=== PATIENT | female | born 1950 | race Caucasian/White ===

== ENCOUNTER 2024-11-04 19:04 | Inpatient (IN) | payer MEDICARE, SELFPAY ==
--- NOTE | ~2024-11-04 | XR_ITS ---
CLINICAL HISTORY: sob 1 view chest x-ray Comparison: None Findings: No consolidation or effusion. Normal size heart. No acute fracture. IMPRESSION: 1. No acute findings. This document has been electronically signed by: Manish Younger MD on 11/04/2024 19:49:59
[2024-11-04 19:14] VITALS: BP 140/73; PULSE 82; O2SAT 99
[2024-11-04 19:23] VITALS: BP 133/61; PULSE 80; RESP 20; TEMP 36.9; O2SAT 96; BMI 38.6
--- NOTE | 2024-11-04 19:25 | ECG_ITS ---
Test Reason : SOB Blood Pressure : */* mmHG Vent. Rate : 78 BPM Atrial Rate : 78 BPM P-R Int : 174 ms QRS Dur : 66 ms QT Int : 384 ms P-R-T Axes : 76 31 53 degrees QTcB Int : 437 ms Normal sinus rhythm Normal ECG No previous ECGs available Referred By: Chely Álvarez Electronically Signed By: NATY DOS SANTOS
--- NOTE | 2024-11-04 19:33 | ED_ITS ---
HPI - SOB/Dyspnea General Chief Complaint: Dyspnea Stated Complaint: SOB x3 weeks, hx COPD, asthma 80% RA Time Seen by Provider: 11/04/24 19:13 Source: patient and EMS Mode of arrival: EMS Limitations: no limitations History of Present Illness ED Provider: Dr. Chely Álvarez HPI Narrative: Patient comes to the emergency room via ambulance complaining of wheezing, cough and shortness of breath. Patient states that last week she tested positive for influenza and since then she has had multiple exacerbations. Per EMS, patient received Solu-Medrol and a DuoNeb. Per EMS, the initial O2 saturation was 80%. However, on arrival patient's oxygen saturation was 95% on 2 L. patient is speaking in full sentences, states that she already feels much better. Related Data Allergies Allergy/AdvReac Type Severity Reaction Status Date / Time No Known Allergies Allergy Verified 11/04/24 19:29 Review of Systems 2 Review of Systems: Constitutional : No Weight loss, No Fever, No Chills, No Night Sweats, No Fatigue, No Malaise ENT/Mouth : No Hearing loss, No Ear Pain, No Nasal Congestion, No Sinus Pain, No Hoarseness, No sore throat, No Rhinorrhea, No Swallowing Difficulty Eyes: No Eye Pain, No Swelling, No Redness, No Foreign Body, No Discharge, No Vision Changes Cardiovascular : Complaining of chest tightness without Chest Pain, No SOB, No Dyspnea on Exertion, No Orthopnea, No Edema, No Palpitations Respiratory : Complaining of cough, wheezing, shortness of breath Gastrointestinal : No Nausea, No Vomiting, No Diarrhea, No Constipation, No abdominal Pain, No Hematochezia, No Melena Genitourinary : no irregular bleeding, No Dysuria, No Urinary Frequency, No Hematuria, No Urinary Incontinence, No Urgency, No Flank Pain, No Urinary Flow Changes, No Hesitancy Musculoskeletal : No joint pain, No Myalgias, No Joint Swelling Skin : No Skin Lesions, No rash Neuro : No Weakness, No Numbness, No Paresthesias, No Loss of Consciousness, No Dizziness, No Headache Psych : No Anxiety/Panic, No Depression, No SI/HI/AH/VH, No Social Issues, Heme/Lymph: No Bruising, No Bleeding,No Lymphadenopathy Endocrine : No Polyuria, No Polydipsia, No Temperature Intolerance PMFSH Social History Social History Smoked in Last 30 Days: No Use of substances other than those prescribed or required for medical reasons: No Advance Directives: Yes Advance Directives Information Provided: No Advance Directives on File: No Do you have a plan to hurt others: No Plan Physical Exam 2 Vital Signs: Vital Signs: Last Vital Signs Temp 98.4 F 11/04/24 22:07 Pulse 89 11/04/24 22:07 Resp 16 11/04/24 22:07 BP 156/73 H 11/04/24 22:07 Pulse Ox 93 11/04/24 22:07 O2 Del Method Nasal Cannula 11/04/24 22:07 O2 Flow Rate 2 11/04/24 22:07 Oxygen Flow Rate 2 11/04/24 19:23 BMI result Body Mass Index 38.6 Const: Other: Appearance: Alert. Oriented X3. No acute distress. Eyes: Pupils equal, round and reactive to light. ENT: Pharynx normal. Neck: Normal inspection. Neck supple. No lymph nodes noted. No crepitus CVS: Normal heart rate and rhythm. Pulses normal. Normal S1 and S2 Respiratory: No respiratory distress. Speaking full sentences, on room air, oxygen saturation 92%. Very mild bilateral wheezing, no rales or crackles Abdomen: Soft and nontender. No rigidity. No distention. Skin: Skin warm and dry. Normal skin color. Normal skin turgor. Extremities: No lower extremity edema. No Lacerations. No Rash Neuro: Oriented X 3. No motor deficit. No sensory deficit. Moving all extremities. No slurred speech. CN 2 through 12 grossly intact Psych: calm, cooperative, normal affect Course Course Course Narrative: Patient was put back on 1 L of O2 for comfort. Patient will receive more nebulization treatments, also receiving 1 dose of magnesium IV. All of patient's labs and imaging pending . Patient already received a dose of Solu-Medrol in the ambulance and a DuoNeb. Medications Administered Discontinued Medications Generic Name Dose Route Start Last Admin Trade Name Franklinq PRN Reason Stop Dose Admin Albuterol Sulfate 2.5 mg/ 0 mg 11/04/24 19:46 11/04/24 19:54 Albuterol/Ipratropium 3 ml INHALE 11/04/24 19:47 5 dose ONCE ONE Administration Albuterol Sulfate 2.5 mg/ 0 mg 11/04/24 22:05 11/04/24 22:09 Albuterol/Ipratropium 3 ml INHALE 11/04/24 22:06 5 dose ONCE ONE Administration Magnesium Sulfate 2 gm in 50 mls @ 25 mls/hr 11/04/24 19:26 11/04/24 20:12 Magnesium Sulfate/H2o IV 11/04/24 21:25 25 mls/hr ONCE ONE Administration Medical Decision Making Medical Decision Making [facility] Narrative: My interpretation of labs: Patient's white blood cell count 8.0. Patient's hemoglobin 9.5, low crit 30.3. No previous labs for comparison. Patient denies bloody stools or black stools. Patient's chemistry within normal limits, normal troponin normal BNP. Serology positive for COVID. Patient has had symptoms for approximately 3 weeks. Unclear when the syndrome actually started. X-ray does not show any acute abnormality. Patient received Solu-Medrol, nebulization treatments, magnesium. Initially, patient was doing well on room air, oxygen saturation 93%. We did not ambulation trial, patient's oxygen saturation dropped to the high 70s, patient became very short of breath with walking a very short distance. Patient was helped back into bed and was placed on 2 L of oxygen, O2 improve again to the low 90s. I discussed the patient with Dr. Herr, patient being admitted Differential Diagnosis Differential Diagnoses: The differential diagnosis associated with the presentation includes Admission/Observation Consideration of admission/observation: Escalation of care including admission/observation considered Consult Healthcare Provider Management of the patient was discussed with: Hospitalist Lab Data MDM Lab Attestation statement: I reviewed the patient's lab results. 11/04/24 19:51 11/04/24 19:51 Labs: Lab Results 11/04/24 11/04/24 Range/Units 19:51 19:55 WBC 8.0 (4.8-10.8) X10*3/uL RBC 3.70 L (4.20-5.50) X10*6/uL Hgb 9.5 L (12.0-16.0) g/dl Hct 30.3 L (37.0-47.0) % MCV 81.9 (80.0-98.0) fL MCH 25.7 L (27.0-33.0) pg MCHC 31.4 (31.0-35.0) g/dl RDW 14.3 (11.0-16.0) % Plt Count 300 (160-400) X10*3/uL MPV 8.7 L (9.4-12.3) fL Immature Gran % (Auto) 0.6 H (0.0-0.4) % Neut % (Auto) 78.0 H (45-73) % Lymph % (Auto) 13.7 L (20-40) % [place] % (Auto) 4.6 (2-11) % Eos % (Auto) 2.8 (0-4) % Baso % (Auto) 0.3 (0-2) % Lymph # (Auto) 1.1 L (1.2-4.9) X10*3/uL [place] # (Auto) 0.4 (0.1-1.2) X10*3/uL Eos # (Auto) 0.2 (0.0-0.4) X10*3/uL Baso # (Auto) 0.0 (0.0-0.2) X10*3/uL Abs Immat Gran (auto) 0.05 H (0.00-0.03) X10*3/uL Absolute Neuts (auto) 6.2 (2.0-8.3) x10*3/uL Absolute Nucleated RBC 0.000 (0.0-0.012) X10*3/uL Nucleated RBC % (auto) 0.0 (0.0-0.2) /100WBC VBG pH 7.41 (7.32-7.43) VBG pCO2 52 mmHg VBG pO2 30 mmHg VBG HCO3 33 H (22-26) mmol/L VBG O2 Saturation 41.0 % VBG Base Excess 7.9 mmol/L Sodium 137 (135-145) mmol/L Potassium 4.5 (3.3-5.1) mmol/L Chloride 100 (96-108) mmol/L Carbon Dioxide 29 (22-29) mmol/L Anion Gap 13 (12-20) BUN 21 H (9-16) mg/dL Creatinine 0.91 (0.5-1.4) mg/dL Estim Creat Clear Calc 62.1 Estimated GFR > 60 Random Glucose 141 H (60-115) mg/dL Calcium 8.5 (8.4-10.2) mg/dL Total Bilirubin 0.2 (0.0-1.0) mg/dL Direct Bilirubin < 0.2 (0.0-0.5) mg/dL AST 34 H (5-31) U/L ALT 30 (0-31) U/L Alkaline Phosphatase 79 (39-117) U/L Troponin I High Sens 3.7 (<3.5-17.0) ng/L B-Natriuretic Peptide 50 (<100) pg/mL Total Protein 6.5 (6.5-8.0) g/dL Albumin 3.5 (3.5-5.0) g/dL Influenza Type A (PCR) POSITIVE A (Negative) Influenza Type B (PCR) NEGATIVE (Negative) RSV RNA Qual (PCR) NEGATIVE (Negative) SARS-CoV-2 RNA (RT-PCR) NEGATIVE (Negative) Independent Interpretation I performed an independent interpretation of an: Plain X-Ray Radiology Impression Discussion of test interpretation with radiology: I have reviewed the radiologist's reading. Radiologist Impression: No consolidation or effusion. Normal size heart. No acute fracture. IMPRESSION: 1. No acute findings Critical Care Time Critical Care Time Critical Care Time: Yes Total Critical Care Time: 60 Attestation: I have personally provided critical care time. Time includes review of lab data, radiology results, discussion with consultants, and monitoring for potential decompensation. Intervention performed as documented. Discharge Plan Discharge Clinical Impression: Asthma with exacerbation Patient Disposition: Admitted As Inpatient Print Language: Chilean
[2024-11-04] MEDS: Albuterol Sulfate 2.5 MG, Albuterol/Iprat 2.5/0.5MG 3 ML 3 ML INHALE ×2 (19:54→22:09)
[2024-11-04 19:55] LABS: MANUAL DIFF FLAG NO
[2024-11-04 19:57] LABS: Basophils Percent Auto 0.3 % (0-2); Eosinophils Absolute Auto 0.2 X10*3/uL (0.0-0.4); Eosinophils Percent Auto 2.8 % (0-4); Hematocrit 30.3 % (37.0-47.0); Hemoglobin 9.5 g/dl (12.0-16.0); Imm Gran Abs Auto 0.05 X10*3/uL (0.00-0.03); Imm Gran Pct Auto 0.6 % (0.0-0.4); Lymphocytes Absolute Auto 1.1 X10*3/uL (1.2-4.9); Lymphocytes Percent Auto 13.7 % (20-40); Mean Corpuscular HGB Conc 31.4 g/dl (31.0-35.0); Mean Corpuscular Hemoglobin 25.7 pg (27.0-33.0); Mean Corpuscular Volume 81.9 fL (80.0-98.0); Mean Platelet Volume 8.7 fL (9.4-12.3); Monocytes Absolute Auto 0.4 X10*3/uL (0.1-1.2); Monocytes Percent Auto 4.6 % (2-11); Neutrophils Absolute Auto 6.2 x10*3/uL (2.0-8.3); Platelet Count 300 X10*3/uL (160-400); Red Cell Distribution Width 14.3 % (11.0-16.0)
[2024-11-04 20:00] LABS: VBG Base Excess 7.9 mmol/L; VBG HCO3 33 mmol/L (22-26); VBG pCO2 52 mmHg; VBG pH 7.41 (7.32-7.43); VBG pO2 30 mmHg
[2024-11-04 20:01] LABS: Venous Blood Gas Refer to POC result
[2024-11-04] MEDS: Magnesium Sulfate/H2O 2 GM/50 ML PIGGYBACK IV (20:12)
[2024-11-04 20:14] LABS: Alanine Aminotransferase 30 U/L (0-31); Albumin Level 3.5 g/dL (3.5-5.0); Alkaline Phosphatase 79 U/L (39-117); Anion Gap 13 (12-20); Aspartate Amino Transferase 34 U/L (5-31); Bilirubin Direct < 0.2 mg/dL (0.0-0.5); Bilirubin Total 0.2 mg/dL (0.0-1.0); Blood Urea Nitrogen 21 mg/dL (9-16); Calcium 8.5 mg/dL (8.4-10.2); Carbon Dioxide 29 mmol/L (22-29); Chloride 100 mmol/L (96-108); Creatinine Clr Calc Pharmacy 62.1; Estimated Glomerular Filt Rate > 60; Glucose Random 141 mg/dL (60-115); Potassium 4.5 mmol/L (3.3-5.1); Sodium 137 mmol/L (135-145); Total Protein 6.5 g/dL (6.5-8.0)
[2024-11-04 20:18] LABS: Troponin-I High Sensitivity 3.7 ng/L (<3.5-17.0)
[2024-11-04 20:21] LABS: B Type Natriuretic Peptide 50 pg/mL (<100)
[2024-11-04 20:38] LABS: Influenza A PCR POSITIVE (Negative); Influenza B PCR NEGATIVE (Negative); Resp Syncy Virus RNA Qual PCR NEGATIVE (Negative); SARS COV2 PCR INHOUSE NEGATIVE (Negative)
--- OUTSIDE RECORDS SUMMARY | 2024-11-04 20:38 | XMS_ITS | Encounter Summary ---
Author Organization [facility] Address [address] [place] [address] Care Team Providers Care Cyanide Case Hardener Name Role Phone Fallon Ramey MD Primary Care Prov ider Reason for Visit * Reason Onset Date Comments Shortness of Breath 10/08/2024 COPD 10/08/2024 Encounter Details Date Type Department Care Team ([facility] st Contact Info) Description 10/08/2024 Telephone Adult Medicine - [place] [address] [place] [address] Fallon Ramey MD [address] [place] [address] Shortness of Breath (/); COPD Social History Tobacco Use Types Packs/Day Years Used Date Smoking Tobacco: Former Cigarettes Q uit: 02/14/2007 Smokeless Tobacco: Never Alcohol Use Standard Drinks/Week Comments No 0 (1 standard drink = 0.6 oz pur e alcohol) Comments Unknown Sex and Gender Information Value Date Recorded Sex Assigned at Not on file Legal Sex Female 9:00 PM EST Gender Identity Not on file Sexual Orientation Not on file documented as of this encounter Ordered Prescriptions Prescription Sig Dispense Quantity Refills Last Filled Start Date End Date sulfamethoxazole-t rimethoprim (BACTRIM DS,SEPTRA DS) 800-160 mg per tablet Take 1 tablet by mouth 2 (two) times a day for 7 days. 14 each 10/08/2024 10/19/2024 predniSONE (DELTASONE) 10 mg tablet Take 1 tablet (10 mg total) by mouth 1 (one) time each day for 10 days. 10 each 10/08/2024 10/19/2024 documented in this encounter Progress Notes * Sushant Pappas RN - 10/08/2024 12:59 PM EST Pt advised medication was sent * Fallon Ramey MD - 10/08/2024 12:44 PM EST Bactrim and prednisone sent to her local pharmacy * Monique Montero RN - 10/08/2024 12:19 PM EST Cough with some wheezing, Bringing up greenish-yellow sputum. Normal for her COPD exacerbation. Sputum was clear until yesterday. Inhaler and updraft are giving relief. States she has spoken with PCP in the past about calling in and getting prednisone and bactrim whenthis occurs. Gets it yearly. Denies fever. O2 is between 90-93 To PCP for review * Adama De La Cruz - 10/08/2024 12:01 PM EST .Patient call requires triage: Symptoms patient is presenting: SOB and COPD How long has patient had these symptoms?: 10/05/24 For ALL patients calling to schedule any appointment (routine, sick visit, follow up, consult, etc.) in the outpatient setting please ask the following questions: Do you have fever of higher than 101, sore throat with difficulty swallowing or severe shortness ofbreath? Yes, SOB If YES to any of these above symptoms, send a message to triage and do not book. Red dot. If no, an audio or video visit should be booked. Have you had close contact with someone with Coronavirus in the last 14 days? no Have you traveled abroad? no Have you traveled recently to another state outside of [place], [place], [place], [place], [place], [place], [place]? no o If yes, did you quarantine for 14 days or have a negative covid test? no If yes to any of the above, patient is not to be scheduled in office until after 14 day quarantine or negative covid test. If pain or injury related was it due to an accident at work or from a motor vehicle accident? If yes, date of accident/Injury: No If yes, gather 3rd republican insurance information Third Republican Information: not applicable PCP: Fallon Ramey MD Payor: [employer] MED[employer]ARE ADVANTAGE / Plan: [employer] MEDICARE ADVANTAGE / Product Type: *No Product type* / documented in this encounter Plan of Treatment Upcoming Encounters Date Type Department Care Team (Late st Contact Info) Description 11/06/2024 2:15 PM EST Office Visit Pulmonolgy - [place] 175 [facility] [address] [place] [address] Raisa Guzman MD 175 [facility] [address] [place] [address] 11/24/2024 9:30 AM EDT Office Visit General Surgery - [place] 175 [facility] [address] [place] [phone] Allen Ramesh MD 175 [facility] [address] [place] [address] 04/20/2025 1:15 PM EDT Office Visit Adult Medicine - [place] [address] [place] [address] Fallon Ramey MD [address] [place] [address] documented as of this encounter Visit Diagnoses Not on filedocumented in this encounter Care Teams Cyanide Case Hardener Relationship Specialty Start Date End Date Fallon Ramey MD [address] [place] [address] PCP - General Internal Medicine 08/27/24 documented as of this encounter
--- OUTSIDE RECORDS SUMMARY | 2024-11-04 20:38 | XMS_ITS | Encounter Summary ---
Author Organization [facility] Address [address] [place] [address] Care Team Providers Care Inkjet Operator Name Role Phone Fallon Ramey MD Primary Care Prov ider Reason for Visit * Reason Comments COPD Follow-up Encounter Details Date Type Department Care Team ([facility] st Contact Info) Description 10/19/2024 2:30 PM EST Office Visit Adult Medicine - [place] [address] [place] [address] Fallon Ramey MD [address] [place] [address] Type 2 diabetes mellitus with obesity (CMS/HCC) (Primary Dx); Essential hypertension, benign; Chronic bronchitis, unspecified chronic bronchitis type (CMS/HCC) Social History Tobacco Use Types Packs/Day Years Used Date Smoking Tobacco: Former Cigarettes Q uit: 02/14/2007 Smokeless Tobacco: Never Tobacco Cessation:Counseling Given: Not Answered Alcohol Use Standard Drinks/Week Comments No 0 (1 standard drink = 0.6 oz pur e alcohol) Comments No Sex and Gender Information Value Date Recorded Sex Assigned at Not on file Legal Sex Female 9:00 PM EST Gender Identity Not on file Sexual Orientation Not on file documented as of this encounter Last Filed Vital Signs Vital Sign Reading Time Taken Comments Blood Pressure 118/55 10/19/2024 2:34 PM EST Pulse 76 10/19/2024 2:34 PM EST Temperature 36.9 ??C (98.5 ??F) 10/19/2024 2:34 PM ES T Respiratory Rate - - Oxygen Saturation - - Inhaled Oxygen Concentration - - Weight 92.1 kg (203 lb) 10/19/2024 2:34 PM EST Height - - Body Mass Index 35.96 06/16/2024 1:05 PM EDT documented in this encounter Ordered Prescriptions Prescription Sig Dispense Quantity Refills Last Filled Start Date End Date LORazepam (ATIVAN) 0.5 mg tablet Take 1 tablet (0.5 mg total) by mouth every 8 (eight) hours if needed for anxiety. Max Daily Amount: 1.5 mg 30 tablet 10/19/2024 5 ipratropium-albut Lotus (DUONEB) 0.5-2.5 mg/3 mL nebulizer solutionIndicatio ns:Chronic bronchitis, unspecified chronic bronchitis type (CMS/HCC) Take 3 mL by nebulization 3 (three) times a day. 810 mL 1 10/19/2024 5 predniSONE (DELTASONE) 10 mg tablet Take 6 tablets (60 mg total) by mouth 1 (one) time each day for 2 days, THEN 5 tablets (50 mg total) 1 (one) time each day for 2 days, THEN 4 tablets (40 mg total) 1 (one) time each day for 2 days, THEN 3 tablets (30 mg total) 1 (one) time each day for 2 days, THEN 2 tablets (20 mg total) 1 (one) time each day for 2 days, THEN 1 tablet (10 mg total) 1 (one) time each day for 2 days. 42 tablet 10/19/2024 5 documented in this encounter Progress Notes * Fallon Ramey MD - 10/19/2024 2:30 PM EST CHIEF COMPLAINT: COPD and Follow-up IDENTIFIER: Fanny Cabrera is a 74 y.o. old female. HPI: Very delightful 74-year-old lady presents for her routine 6 months follow-up She has a history of hypertension type 2 diabetes mellitus osteopenia chronic back pain depression and anxiety Uses benzodiazepines occasionally for severe anxiety Today she says that she still having a hard time breathing feels tight was treated with prednisone but still feels tight no wheezing no shortness of breath Healthcare maintenance issues addressed ROS: See HPI PAST MEDICAL HISTORY: Patient Active Problem List Diagnosis Date Noted Severe obesity (BMI 35.0-35.9 with comorbidity) ([facility]) 06/10/2024 PAF (paroxysmal atrial fibrillation) ([facility]) 03/11/2024 Diverticulitis of colon with perforation 02/18/2024 Type 2 diabetes mellitus without complication, without long-term current use of insulin ([facility]) 12/07/2020 Mild episode of recurrent major depressive disorder ([facility]) 04/18/2020 Morbid obesity ([facility]) 02/20/2020 HTN (hypertension), benign 10/01/2017 Type 2 diabetes mellitus with obesity ([facility]) 04/22/2016 Osteopenia 02/02/2016 COPD (chronic obstructive pulmonary disease) ([facility]) 11/14/2010 Chronic back pain 09/03/2008 Hyperlipidemia 06/21/2008 Anxiety 06/16/2008 Essential hypertension, benign 05/08/2007 Female stress incontinence 09/11/2005 SOCIAL HISTORY: Social History Tobacco Use Smoking status: Former Current packs/day: 0.00 Types: Cigarettes Quit date: 02/14/2007 Years since quittin.6 Smokeless tobacco: Never Substance Use Topics Alcohol use: No FAMILY HISTORY: Family Status Relation Name Status Father Mother Daughter Son Alive Sister Alive No partnership data on file Family History Problem Relation Name Age of Onset COPD Father Hypertension Mother Glaucoma, COPD Heart attack Mother Hypertension Daughter Glaucoma Daughter Lung cancer Daughter Drug abuse Son No Known Problems Sister ACTIVE MEDICATIONS: Outpatient Medications Marked as Taking for the 10/19/24 encounter (Office Visit) with Fallon Ramey MD Medication Sig Dispense Refill albuterol HFA (PROAIR HFA ; PROVENTIL HFA ; VENTOLIN HFA) 90 mcg/actuation inhaler Inhale 2 puffs by mouth every 6 (six) hours if needed for wheezing. Inhale 2 Puffs into the lungs every 6 hours as needed for Cough or Wheezing. 25.5 g 0 cholecalciferol (VITAMIN D-3) 25 mcg (1,000 unit) capsule Take 1 Capsule by mouth daily. FLUoxetine (PROzac) 40 mg capsule Take 1 Capsule by mouth daily. piybbwpfjmn-wlnrhpdpzhql-cogwyogowa (Trelegy Ellipta) 200-62.5-25 mcg inhaler hydroCHLOROthiazide (HYDRODIURIL) 25 mg tablet Take 1 tablet by mouth once daily 90 tablet 0 ipratropium-albuteroL (DUONEB) 0.5-2.5 mg/3 mL nebulizer solution Take 3 mL by nebulization 3 (three) times a day. 810 mL 1 LORazepam (ATIVAN) 0.5 mg tablet Take 1 tablet (0.5 mg total) by mouth every 8 (eight) hours if needed for anxiety. Max Daily Amount: 1.5 mg 30 tablet 0 metoprolol succinate (TOPROL-XL) 100 mg 24 hr tablet Take 1 tablet by mouth once daily montelukast (SINGULAIR) 10 mg tablet Take 1 Tablet by mouth at bedtime. PARoxetine (PAXIL) 40 mg tablet TAKE 1 TABLET BY MOUTH IN THE MORNING simvastatin (ZOCOR) 40 mg tablet TAKE 1 TABLET BY MOUTH AT BEDTIME spironolactone (ALDACTONE) 25 mg tablet Take 1 Tablet by mouth daily. [DISCONTINUED] ipratropium-albuteroL (DUONEB) 0.5-2.5 mg/3 mL nebulizer solution Inhale 3 mL into the lungs every 6 hours as needed (every 6 hours as needed). [DISCONTINUED] LORazepam (ATIVAN) 0.5 mg tablet Take 1 Tablet by mouth 2 times daily as needed for Anxiety. ALLERGIES: Cyclobenzaprine, Iodinated contrast media, Nickel, and Pentazocine lactate PHYSICAL EXAM: Blood pressure 118/55, pulse 76, temperature 36.9 ??C (98.5 ??F), temperature source Temporal, weight 92.1 kg (203 lb). Body mass index is 35.96 kg/m??. Plan is deferred because the patient is aged 65 or older and a weight gain/reduction plan would complicate other health conditions APPEARANCE: Alert and in no acute distress EYES: PERRLA, conjunctiva and sclera normal EARS: External ears normal. Canals clear. TMs normal. NOSE/SINUS: Nares normal. Septum midline. Mucosa normal. No drainage or sinus tenderness MOUTH/THROAT: no erythema, lesions, or exudates NECK: Neck supple, no adenopathy, thyroid symmetric and of normal size HEART: RRR with normal S1 and S2, no murmurs, no gallops, no JVD appreciated LUNG: Decreased breath sounds bilaterally EXTREMITIES: Extremities warm and well perfused without clubbing, cyanosis, or edema LABS: Wt Readings from Last 3 Encounters: 10/19/24 1434 92.1 kg (203 lb) 06/16/24 1305 92.1 kg (203 lb) 04/17/24 1555 91.4 kg (201 lb 6.4 oz) Lab Results Component Value Date HGBA1C 6.3 04/17/2024 IMPRESSION: 1. Type 2 diabetes mellitus with obesity ([facility]) 2. Essential hypertension, benign 3. Chronic bronchitis, unspecified chronic bronchitis type ([facility]) PLAN: Type 2 diabetes mellitus Continue present medication regimen She will check her blood sugars as she is going to be on prednisone Mild COPD exacerbation Prednisone taper Hypertension Blood pressure under good control She will continue the metoprolol Patient is given a short prescription for lorazepam She will call the office if her symptoms do not improve Return to the office in 6 months or as needed No orders of the defined types were placed in this encounter. ADDITIONAL ORDERS: None Fallon Ramey MD on 10/19/2024 at 4:58 PM EST documented in this encounter Plan of Treatment Upcoming Encounters Date Type Department Care Team (Late st Contact Info) Description 11/06/2024 2:15 PM EST Office Visit Pulmonolgy - [place] [address] [phone] Raisa Guzman MD [address] [address] 11/24/2024 9:30 AM EDT Office Visit General Surgery - [place] 175 [facility] [address] [place] [phone] Allen Ramesh MD [address] [address] 04/20/2025 1:15 PM EDT Office Visit Adult Medicine - [place] [address] [place] [phone] Fallon Ramey MD [address] [place] [address] documented as of this encounter Visit Diagnoses Diagnosis Type 2 diabetes mellitus with obesity (CMS/HCC)- Primary Essential hypertension, benign Chronic bronchitis, unspecified chronic bronchitis type (CMS/HCC) documented in this encounter Discontinued Medications Medication Sig Discontinue Reason Start Date End Da te LORazepam (ATIVAN) 0.5 mg tablet Take 1 tablet (0.5 mg total) by mouth 1 (one) time each day if needed. Max Daily Amount: 0.5 mg Therapy completed 10/22/2017 10/19/2024 neomycin (MYCIFRADIN) 500 mg tablet Take 1 Tablet by mouth See Admin Instructions. Take 1 tab by mouth at 2pm, 3pm, and 8pm the day before surgery Therapy completed 10/19/2024 ondansetron ODT (ZOFRAN-ODT) 4 mg disintegrating tablet Take 1 Tablet by mouth every 8 hours as needed for Nausea for up to 7 days. Therapy completed 10/19/2024 predniSONE (DELTASONE) 10 mg tablet Take 1 tablet (10 mg total) by mouth 1 (one) time each day for 10 days. Therapy completed 10/08/2024 10/19/2024 sulfamethoxazole-trimethop rim (BACTRIM DS,SEPTRA DS) 800-160 mg per tablet Take 1 tablet by mouth 2 (two) times a day for 7 days. Therapy completed 10/08/2024 10/19/2024 ipratropium-albuteroL (DUONEB) 0.5-2.5 mg/3 mL nebulizer solution Inhale 3 mL into the lungs every 6 hours as needed (every 6 hours as needed). Reorder 11/13/2022 10/19/2024 LORazepam (ATIVAN) 0.5 mg tablet Take 1 Tablet by mouth 2 times daily as needed for Anxiety. Reorder 02/11/2024 10/19/2024 documented as of this encounter Care Teams Inkjet Operator Relationship Specialty Start Date End Date Fallon Ramey MD [address] [place] [id number] PCP - General Internal Medicine 08/27/24 documented as of this encounter
--- OUTSIDE RECORDS SUMMARY | 2024-11-04 20:39 | XMS_ITS | Data Portability ---
Author Organization [place] - [facility],, BLANCA RODRIGUEZ MD Address [address] [facility] [address] [place] [address] Care Team Providers Care Computed Tomography Technologist Name Role Phone JAMIE WALKER OTHER Assessment No assessment recorded. Plan of Treatment Reminders Order Date Submit Date Provider Last Modified By Organization Details Last Modified Time Details Appointments None recorded. Lab pap test, thinprep, cervical 2014 015 [facility], Cytopathology Service, [address] [place], [address], 5 10:11:29 fecal occult blood, stool 2014 015 [email or web address] 1 In-Office Order, Internal Use Only DO Not Attach Compendium DO Not Attach Compendium, Do Not Delete/merge, [id number] 5 16:14:12 bracanaly sis 2012 013 [email or web address] [email or web address], [address] [place] [address], [address], 3 10:58:54 lyme screen with reflex 2012 013 ANDRES Not available 3 12:04:49 occult blood, screen 2012 013 [email or web address] 1 In-Office Order, Internal Use Only DO Not Attach Compendium DO Not Attach Compendium, Do Not Delete/merge, [id number] 3 10:37:24 cytology, Pap smear 2012 013 emigdio [facility], Cytopathology Service, [address] [place], [address], 3 07:39:15 Referral None recorded. Procedures None recorded. Surgeries None recorded. Imaging MAMMO, screening , digital, bilateral 2014 015 [facility] (Central Scheduling Radiology), [address] [place], [address], 5 15:58:23 Medication Orders None recorded. Patient TargetsNo targets recorded. Patient Instructions Encounter Date Encounter Id Patient Instructions Last Modified By Organization Details Last Modified Time 05/14/2013 [id number] She has multiple knee and back joint arthralgias, and fatigue, check Lyme titer. 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 She appears to be doing well. She is advised to get 1500 mg of calcium daily into her diet and supplements combined. There is a health benefit with adequate vitamin D supplementation to at least 400 units daily, daily aerobic exercise of 30 minutes, and stress reduction. Monthly self breast exam was taught, and stressed, and is advised to call if she discovers any new mass in the breast. ?? Seat belt use for herself and passengers are advised. There are significant health benefits of becoming and remainig fit, with an optimal BMI. There is a potential reduction in chronic discomfort, diminished risks of hypertension, diabetes, and heart disease with the proper weight management. With a recommended BMI there can be improved mobility as she ages. Strategies to reach and maintain her target weight were discussed in detail. ____ We discussed her strong family history of breast cancer. She has previously read the pamphlet on BRCA screening.?? She had a few questions, which were answered. We discussed that only 5% of patients who have a strong family history of breast and /or ovarian cancer will ultimately be found to be BRCA positive.?? We discussed how the human genome functions to transfer traits and risks, and what a mutation is, and how this can be passed from parent to child.?? We discussed the 50% chance that a BRCA positive individual will give the mutation to their child, and that 50% of the children, statistically, will not inherit the mutation, which means that they can not pass it on.?? It does not skip a generation. We reviewed the statistics on risks for breast and ovarian cancer in the general populatoin, and in a BRCA positive individual, as stated in the take home booklet Hereditary Breast and Ovarian Cancer Syndrome, A patient's guide to risk assessment , and she received this to go home with, to review again. We discussed that by law an insurer can not discriminate against her if she were to test positive, for health insurance. We discussed the company that does the test, and that there is only one company that does this testing and so all tests go here. She is aware that the co payment could be a maximum amount of 375 dollars, and that the testing company ([facility]) will contact her if the co pay were to be more than that, prior to running the test, to get her approval. If she were to test postiive for the BRCA mutation then she could be offered a management protocol that could include increased testing, including breast MRI, removal of her ovaries, preventitive medical therapy such as raloxifene, and even prophypactic removal of her breast tissue. She is aware. Implications for testing of other family members if she were to be postiive, and the decreased cost for that testing, discussed. All questions answered.?? She would like??to be tested, and she qualifies to be tested.??She is aware that it is her responsibility to be certain the test will be covered by her insurance however we will work with her to get accurate information for her to make decisions. Not available 05/14/2013 10:37:24 03/07/2015 [id number] She appears to b e doing well. She is advised to get 1500 mg of calcium daily into her diet and supplements combined. There is a health benefit with adequate vitamin D supplementation to at least 400 units daily, daily aerobic exercise of 30 minutes, and stress reduction. Monthly self breast exam was taught, and stressed, and is advised to call if she discovers any new mass in the breast. ?? Seat belt use for herself and passengers are advised. There are significant health benefits of becoming and remainig fit, with an optimal BMI. There is a potential reduction in chronic discomfort, diminished risks of hypertension, diabetes, and heart disease with the proper weight management. With a recommended BMI there can be improved mobility as she ages. Strategies to reach and maintain her target weight were discussed in detail. Not available 03/07/2015 16:14:12 08/12/2017 [id number] advance directiv es: care instructions [email or web address] Not available 08/12/2017 14:37:15 She is here to discuss the results of her recent left breast biopsy, showing infiltrating lobular carcinoma, Grade 1. 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 The 07/23/17 mammo showd the 5 mm mass is in the upper outer quadrant of the left breast at the 2 o'clock, 5 cm from the nipple. Prior mammos were 01/2017 unilateral, which showed a 3 mm nodule stable since 07/2016, and prior was 07/2016 screening, showing a 3 to 4 mm nodule thought to be intramammary lymph node. She has a past history of right breast DCIS in 1993, treated with lumpectomy and radiation therapy. She was tested for BRCA 1 and BRCA 2 in 04/2013, and was negative. We have only seen her here twice, once for annual in 04/2013, and again for annual in 02/2015. Note from 04/2013: She is here for her annual exam, is doing well, she has not been here prior to this. She has a past history of breast cancer, DCIS, at age 44, treated with lumpectomy and RTx. . She also has a paternal aunt who had breast cancer at age 75. No on in the family has had BRCA testing. She has been having knee and back pain. Last bone density was 3 years ago, normal. We had a long discussion about her new diagnosis of left breast cancer. She had a number of good questions concerning the difference between ductal and lobular, the different treatment options, the need for chemo or not, etc. All questions answered. She has a small cancer, within the setting of a larger area of carcinoma in situ. Her prior cancer was in her right breast, now this is in her left breast. We discussed that standarad therapy would likely be lumpectomy, followed by RTx, as she had done on the right, in 1993. We also discussed that therapy has improved dramatically in the intervening decades. She also raised the possibility of mastectomy, this was also discussed. She is not certain if her insurance will require her to go to [facility], or to [facility] where she prefers. She will check with them and then get back to me, and we will set up her appointment for her to see the breast surgeon. She is age 67 but still working, had questions about how the treatment will impact her work schedule. By the end of the discussion she noted that she felt comfortable with this information and all of her questions had been answered. She will be meeting with the radiologist who did the biopsy later today, and then the breast surgeon once she knows which hospital to choose. Face to face discussion 45 minutes Not available 08/12/2017 14:01:52 Reason for Referral None Reported. Results Created Date Observation Date Name Description Value Unit Range Abnormal Flag Note LastModifiedBy Organization Detail LastModifiedTime 03/07/20 15 03/07/2015 fecal occul t blood , stool Occult Blood negati ve Not Available In-Office Order Internal Use Only DO Not Attach Compendium DO Not Attach Compendium, Do Not Delete/merge, [id number] 03/07/2015 14:50:14 05/14/20 13 05/14/2013 occul t blood , scree n Occult Blood negati ve Not Available In-Office Order Internal Use Only DO Not Attach Compendium DO Not Attach Compendium, Do Not Delete/merge, [id number] 05/14/2013 08:59:04 05/14/20 13 05/14/2013 pap1c ase [id number] thinp rep Pap, image d: negat ariana for squam ous intra epith elial lesio n and malig erick . rebec anny gates [place], CT(as cp) (case elect dutch head ally d 05 19 2013) adequ acy: satis facto ry. endoc ervic al trans forma tion zone compo nent prese nt. sourc e: thinp rep Pap, cervi daniel, image d clini daniel infor matio n: HPV if diagn osis of ASCUS . lps =ne g, menop ause * cytop athol ogy servi ignacio provi ded by [facility] at the above addre ss. Not Available [facility], Cytopathology Service [address] [facility], [place], [address], 05/20/2013 09:28:19 03/07/20 15 03/07/2015 pap, LB [id number] ThinP rep Pap, Image d: NEGAT ARIANA FOR SQUAM OUS INTRA EPITH ELIAL LESIO N AND MALIG ERICK . Kim Beverly ams, CT( CP) (Case elect dutch head ally d 03 09 2015) ADEQU ACY: Satis facto ry. Endoc ervic al/tr ansfo rmati on zone compo nent prese nt. SOURC E: ThinP rep Pap, Cervi daniel, Image d CLINI DANIEL INFOR MATIO N: HPV If Diagn osis of ASCUS . lps neg, menop ause * Cytop athol ogy servi ignacio provi ded by [facility] at the above addre ss. Not Available [facility], Cytopathology Service [address] [facility], [place], [address], 03/09/2015 10:11:28 08/07/20 17 08/07/2017 surgi daniel patho logy study surgicalcase LEFT BREAS T, 2 O'JENS CK, 5 CM FROM THE NIPPL E (CORE BIOPS Y): - INFIL TRATI NG LOBUL AR CARCI NOMA, HISTO LOGIC GRADE I (WELL DIFFE RENTI ATED) AND LOBUL AR CARCI NOMA IN-SI . - ATYPI DANIEL INTRA DUCTA L HYPER PLASI A. - ESTRO GEN AND PROGE STERO NE EMISSIONS TECHNICIAN TOR, Ki67 AND HER2- TEGAN IMMUN OHIST OCHEM ISTRY WILL BE PERFO RMED AND A SUPPL EMENT AL REPOR T WILL AMAIRANI Sanchez M.D., Patho logis t (Case elect dutch head ally d 08 09 2017) SUPPL EMENT AL REPOR T: IMMUN OPERO XIDAS E STAIN S: -ESTR OGEN EMISSIONS TECHNICIAN TOR: POSIT ARIANA (% POSIT ARIANA CELLS : 100) -PROG AMAIRANI ONE EMISSIONS TECHNICIAN TOR: POSIT ARIANA (% POSIT ARIANA CELLS : 100) -HER2 -TEGAN: NEGAT ARIANA (1+) (% POSIT ARIANA CELLS : 30, FAINT , INCOM PLETE ) -Ki67 : LOW (% POSIT ARIANA CELLS : < 20) -CONT ROLS (EXTE RNAL AND INTER NAL): APPRO PRIAT E Inter preta tion: Based upon the above stain ing resul ts this tumor is consi dered a LUMIN AL A subty pe. Metho d : Polym er HRPst ainin g. Cold Ische jacqueline and Fixat ion Times Meet requi remen ts speci fied in the lates t versi on of the ASCO/ CAP guide lines Monoc lonal antib claudia for ER: SP1, WI: 636. Stain ing evalu ation ER/WI : Posit ariana= 1% or more posit ariana nucle i. Monoc lonal antib cluadia for HER2: E1045 Y. Stain ing evalu ation for HER2 (ASCO /CAP GUIDE LINES 2012) : - NEGAT ARIANA (0,1+ ): No stain ing or incom plete barel y perce ptibl e stain ing in >10 % of cells . - EQUIV OCAL (2+): Stron g compl ete stain ing in 10% or less of cells or weak or moder ate stain ining in >10 % cells . - POSIT ARIANA (3+): Stron g compl ete stain ing in more than 10% of cells . Monoc lonal antib claudia for Ki-67 : Clone K2. Stain ing evalu ation : Ki67 HIGH = or > 20% posit ariana nucle i. Ki67 LOW < 20%. -Food and Drug Admin istra tion (FDA) clear ed: WI: Leica , Ki67: Bioca re -Anal yte speci fic reage nt: ER: Cell Marqu e, HER2: Bioca re, ( These immun ohist ochem ical tests were devel oped and their perfo rmanc e mikaela cteri stics were deter mined by [facility] . They have not been clear ed or appro jony by the U.S. Food and Drug Admin istra tion. The FDA has deter mined that such clear ance or appro per is not neces urban. These tests are used for clini daniel purpo ses. They shoul d not be regar ded as inves tigat ional or for resea rch. This labor atory is certi fied under the Clini daniel Labor atory Impro vemen t Amend ments of 1987 (CLIA ) as quali fied to perfo rm high compl exity clini daniel labor atory testi ng) Estefany Sanchez M.D., Patho logis t (Supp lemen gilma Repor t Ally d 08 12 2017) Pre-O p/Cli nical Diagn osis: LEFT BREAS T LESIO N HISTO RY RIGHT BREAS T CANCE R BIOPS Y IS DONE FOR: 3 MM SPICU LATED MASS ULTRA SOUND SHOWS : SPICU LATED MASS PROBA BILIT Y THAT THE TARGE T WAS SAMPL ED: HIGH HISTO RY OF PREVI OUS BREAS T CANCE R: YES, RIGHT LUMPE CTOMY AND RADIA TION IN 1992, PAUL KE HISTO RY OF NON-B REAST CANCE R: NO HISTO RY OF ATYPI DANIEL HYPER PLASI A: NO HISTO RY OF RADIA TION/ CHEMO THERA PY: YES, RIGHT BREAS T Speci men and Site: BREAS T, LEFT 2 O'JENS CK 5CMFN -CORE BIOPS Y Gross Descr iptio n: Label ed left breas t 2 o'jens ck 5 cm from nippl e . Recei jony in forma viridiana are two soft to rubbe ry, focal ly strin gy, yello w-whi te fibro fatty tissu e cores , measu ring 1.4 x 0.3 cm and 1.5 x 0.2 cm, which are submi tted in toto, betwe en spong es, in one casse tte, two piece s, x3. TIME BLOOD FLOW INTER RUPTE D BY SURGE ON (warm ische jacqueline start s): 11:05 AM (07/18 11/02) TIME REMOV ED FROM PATIE NT (warm ends < cold ische jacqueline start s): 11:15 AM (07/18 11/02) TIME PUT IN FORMA VIRIDIANA (cold ische jacqueline ends) : 11:20 AM (07/18 11/02) TIME SENT TO RADIO LOGY (rodriguez sport time start s): Not given TIME RECEI JONY IN PATHO LOGY (rodriguez sport time ends) : 11:40 AM (07/18 11/02) TIME TISSU E EXITS FINAL STAGE OF FORMA VIRIDIANA ON TISSU E PROCE SSOR: 9:30 PM (07/18 11/30) TOTAL FIXAT ION TIME: Less than 72 hours MB/ks Physi cians : MARGO RIOS /#[phone]/7 67174 3 INGRID MACKEY N /#[phone] [phone] 895-9 394/2 07171 9 MAMMO GRAPH Y/SPO ROPS/ #748- [phone]/ [phone] SPAGN SEDRICK JIN TA/#7 [phone] ULTRA SOUND DEPAR TMENT //74 [id number] Not Available [facility], Cytopathology Service [address] [facility], [place], [address], 08/12/2017 14:10:44 06/17/20 14 06/16/2014 imagi ng/di candace tic resul t No observ ation record ed. [email or web address] ([facility]) [address] [place], [address], 06/17/2014 11:22:27 06/20/20 15 06/20/2015 MAMMO , scree mary, digit al, bilat eral No observ ation record ed. [email or web address] [facility] [address] [place], [address], 06/20/2015 16:06:23 07/19/20 16 07/19/2016 MAMMO , scree mary, digit al, bilat eral No observ ation [facility] ed. [facility] [address] [place], [address], 07/20/2016 08:24:38 07/24/20 16 US, breas t No observ ation record ed. [facility] [address] [place], [address], 07/25/2016 09:39:04 01/17/20 17 01/16/2017 MAMMO , diagn ostic , digit al, unila teral No observ ation record ed. [facility] [address] [place], [address], 01/17/2017 09:25:59 07/23/20 17 07/23/2017 MAMMO , scree mary, digit al, bilat eral No observ ation record ed. [facility] [address] [place], [address], 07/25/2017 10:00:53 07/23/20 17 07/23/2017 MAMMO , scree mary, digit al, bilat eral No observ ation record ed. [facility] [address] [place] [address], [address], 07/25/2017 09:58:41 10/31/19 21 10/31/2020 MAMMO , scree mary, digit al, bilat eral No observ ation record ed. [email or web address] [facility] [address] [place], [address], 10/31/2020 13:54:09 11/07/19 21 11/07/2020 MAMMO , diagn ostic , digit al, unila teral No observ ation record ed. [address] [facility] [address] [place], [address], 11/08/2020 08:39:29 11/07/19 21 11/07/2020 US, jeniferas t No observ ation record ed. [address] [facility] [address] [place], [address], 11/08/2020 08:42:18 05/08/20 21 05/08/2021 MAMMO , diagn ostic , digit al, unila teral No observ ation record ed. [address] (Mammography) [address] [place], [address], 05/08/2021 15:20:15 11/08/19 22 11/08/2021 MAMMO , diagn ostic , digit al, bilat eral No observ ation record ed. [address] [facility] [address] [place], [address], 11/09/2021 09:21:46 Result Notes None recorded. Problems Name Problem SNOMED Code Status Onset Date Resolution Date Notes Provider Name and Address Organization Details Recorded Time Infiltrating lobular carcinoma of breast 141789451 Active 2016 Blanca Rodriguez MD [address] [facility], [place], [address] , [place] [facility], 7 13:53:04 Female stress incontinence 67030704 Active Not Available [facility] 3 03:01:07 Multiple joint pain 57547259 Active Not Available [facility] 3 03:01:07 Breast lump 96274188 Active Not Available [facility] 3 03:01:07 Menopausal syndrome 609808226 Active Not Available [facility] 3 03:01:07 Knee pain Active Not Available [facility] 3 03:01:07 Family history of breast cancer 580723781 Active Not Available [facility] 3 03:01:07 Personal history of primary malignant neoplasm of breast 464184582 Active Blanca Rodriguez MD [address], [place], [address] , [place] - [facility], 5 16:14:12 Problem Notes None recorded. Procedures Surgical History Date Name Laterality Status Provider Name and Address Organization Details Recorded Time 09/05/20 17 STEREOTACTIC BREAST BIOPSY (SURG) completed Blanca Rodriguez MD [address], [place], [address], [place] - [facility], 09/06/2017 08:27:40 04/19/20 14 Other completed Erica Gasca [place] - [facility], 03/07/2015 14:48:19 09/16/19 06 Ovarian Cystectomy completed Kathy Johnson [place] - [facility], 05/14/2013 08:58:07 09/16/18 94 Breast Biopsy completed Blanca Rodriguez MD [address], [place], [address], [place] - [facility], 05/14/2013 10:23:07 Imaging Results Imaging Date Name Status [facility]Modified by [facility] Details LastModified Time 06/16/2014 imaging/diagnos tic result completed [facility] ([facility]) [address] [place] [address], [address], 06/17/2014 11:22:27 06/20/2015 MAMMO, screening, digital, bilateral completed [address] [facility] [address] [place] [address], [address], 06/20/2015 16:06:23 07/19/2016 MAMMO, screening, digital, bilateral completed [facility] [address] [place] [address], [address], 07/20/2016 08:24:38 07/24/2016 [place], breast completed [facility] [address] [place] [address], [address], 07/25/2016 09:39:04 01/16/2017 MAMMO, diagnostic, digital, unilateral completed [facility] [address] [place] [address], [address], 01/17/2017 09:25:59 07/23/2017 MAMMO, screening, digital, bilateral completed [facility] [address] [place] [address], [address], 07/25/2017 10:00:53 07/23/2017 MAMMO, screening, digital, bilateral completed [facility] [address] [place] [address], [address], 07/25/2017 09:58:41 10/31/2020 MAMMO, screening, digital, bilateral completed [facility] [address] [place] [address], [address], 10/31/2020 13:54:09 11/07/2020 MAMMO, diagnostic, digital, unilateral completed [address] [facility] [address] [place] [address], [address], 11/08/2020 08:39:29 11/07/2020 [place], breast completed [address] [facility] [address] [place] [address], [address], 11/08/2020 08:42:18 05/08/2021 MAMMO, diagnostic, digital, unilateral completed [address] (Mammography) [address] [place], [address], 05/08/2021 15:20:15 11/08/2021 MAMMO, diagnostic, digital, bilateral completed [address] [facility] [address] [place], [address], 11/09/2021 09:21:46 Procedure Notes None recorded. Medical Equipment None Reported. Allergies Allergen ID Allergen Name Allergen Category Reaction Reaction Severity Criticality Documentation Date Start Date Code Code System Note Provider Name and Address Organization Details Recorded Time 9381 cyclobenz aprine medicatio n Not available Not available Not available 05/04/2013 60297 RxNorm KathyRAYO Chun in [facility], 3 14:27:44 9382 Iodinated contrast media (substanc e) medicatio n Not available Not available Not available 05/04/2013 72071 2004 SNOMED KathyRAYO Chun in [facility], 3 14:27:44 9383 Talwin medicatio n Not available Not available Not available 05/04/2013 8002 RxNorm RAYO Espinoza in [facility], 3 14:27:44 Medications Name Sig Start Date Stop Date Status Note LastModified by Organization Details LastModified Time celecoxib 200 mg capsule TAKE 1 CAP BY MOUTH DAILY. active Not Available Not Available No t Available amoxicillin 500 mg capsule TAKE 4 CAPSULES BY MOUTH 1 HOUR PRIOR TO DENTAL WORK 08/12 completed Not Available Not Available Not Available prednisone 10 mg tablet active Not Available Not Available Not Available paroxetine 10 mg tablet TAKE 1/2 TABLET BY MOUTH EVERY MORNING FOR 2 TO 4 DAYS THEN 1 TABLET EVERY MORNING 08/12 completed Not Available Not Available Not Available ipratropium 0.5 mg-albutero l 3 mg (2.5 mg base)/3 mL nebulizatio n soln INHALE 3 ML VIAL VIA NEBULIZER MACHINE INTO THE LUNGS 4 TIMES DAILY NEEDED (SOB OR WHEEZING) . active Not Available Not Available No t Available Stool Softener 100 mg capsule TAKE 1 CAPSULE BY MOUTH TWICE A DAY active Not Available Not Available No t Available hydrocodone 5 mg-acetamin ophen 325 mg tablet TAKE 1 TO 2 TABLETS BY MOUTH EVERY 4 TO 6 HOURS NEEDED FOR PAIN (NO DRIVING ON THIS MED) active Not Available Not Available No t Available prednisone 20 mg tablet TAKE 1&1/2 TAB DAILY X 2 DAYS THEN 1 TAB DAILY X 2 DAYS THEN 1/2 TAB DAILY X 2 DAYS 08/12 completed Not Available Not Available Not Available metoprolol succinate ER 100 mg tablet,exte nded release 24 hr TAKE 1 TAB BY MOUTH DAILY. active Not Available Not Available No t Available sulfamethox azole 800 mg-trimetho prim 160 mg tablet active Not Available Not Available Not Available doxycycline monohydrate 100 mg tablet TAKE 1 TAB BY MOUTH 2 TIMES DAILY. active Not Available Not Available No t Available tramadol 50 mg tablet TAKE 1 TABLET BY MOUTH EVERY 4 TO 6 HOURS NEEDED. active Not Available Not Available No t Available simvastatin 40 mg tablet TAKE 1 TAB BY MOUTH AT BEDTIME. active Not Available Not Available No t Available meloxicam 7.5 mg tablet TAKE 1 TABLET BY MOUTH TWICE A DAY WITH FOOD OR MILK active Not Available Not Available No t Available oxycodone-a cetaminophe n 5 mg-325 mg tablet TAKE 1 TO 2 TABLETS BY MOUTH EVERY 4 TO 6 HOURS NEEDED. active Not Available Not Available No t Available hydromorpho ne 2 mg tablet TAKE 1 TO 2 TABLETS BY MOUTH EVERY 4 TO 6 HOURS NEEDED FOR PAIN active Not Available Not Available No t Available lorazepam 0.5 mg tablet TAKE 1 TABLET BY MOUTH EVERY DAY NEEDED FOR ANXIETY OR INSOMNIA 08/12 completed Not Available Not Available Not Available paroxetine 30 mg tablet TAKE 1 TAB BY MOUTH EVERY MORNING. 08/12 completed Not Available Not Available Not Available paroxetine 20 mg tablet TAKE 1 TABLET BY MOUTH EVERY MORNING active Not Available Not Available No t Available Combivent 18 mcg-103 mcg/actuati on aerosol inhaler active Not Available Not Available Not Available morphine ER 15 mg tablet,exte nded release TABLET BY MOUTH EVERY 12 HOURS NEEDED FOR PAIN DO NOT DRIVE WHILE TAKING active Not Available Not Available No t Available hydrochloro thiazide 25 mg tablet TAKE 1 TAB BY MOUTH DAILY. active Not Available Not Available No t Available gabapentin 100 mg capsule TAKE 1 CAPSULE BY MOUTH EVERY MORNING AND TAKE 2 CAPSULES IN THE EVENING active Not Available Not Available No t Available lorazepam 1 mg tablet active Not Available Not Available No t Available warfarin 1 mg tablet TAKE 1 TO 10 TABLETS BY MOUTH DAILY DIRECTED active Not Available Not Available No t Available paroxetine 40 mg tablet TAKE 1 TABLET BY MOUTH EVERY MORNING active Not Available Not Available No t Available amoxicillin 875 mg-miryamu m clavulanate 125 mg tablet TAKE 1 TABLET BY MOUTH 2 TIMES DAILY. 08/12 completed Not Available Not Available Not Available Flovent HFA 110 mcg/actuati on aerosol inhaler INHALE 1 PUFF BY MOUTH TWICE A DAY RINSE MOUTH AFTER USE active Not Available Not Available No t Available Co Q-10 active Not Available Not Avail able Not Available Centrum Silver active Not Available Not Available Not Available krill oil active Not Available Not Andreea ilable Not Available Combivent Respimat 20 mcg-100 mcg/actuati on solution for inhalation INHALE 1 PUFF INTO THE LUNGS 4 TIMES DAILY. NEEDED active Not Available Not Available No t Available gluc-condr- om3-dha-epa -fish-st active Not Available Not Available Not Available Vitals Date Recorded Body height Heart rate Systolic blood pressure Diastolic blood pressure Provider Name and Address Organization Details Last Updated DateTime 08/12/2017 160.02 cm 82 /min 165 mm[Hg] 81 mm[Hg] Erica Griffiths in [facility], 08/12/2017 11:47:33 Date Recorded Body height Body weight Body mass index (BMI) Heart rate Systolic blood pressure Diastolic blood pressure Provider Name and Address Organization Details Last Updated DateTime 3 160.02 cm 95463.7 64330 g 34.3 kg/m2 86 /min 148 mm[Hg] 79 mm[Hg] Kathy Griffiths in [facility], 3 08:58:07 Date Recorded Body height Body weight Heart rate Body mass index (BMI) Systolic blood pressure Diastolic blood pressure Provider Name and Address Organization Details Last Updated DateTime 5 160.02 cm 44187.3 6556 g 74 /min 33.3 kg/m2 147 mm[Hg] 65 mm[Hg] Erica Potorski [place] - [facility], 5 14:51:40 Social History Question Answer Notes LastModified by [employer] Channel Details LastModified Time Tobacco Smoking Status Former Smoker quit 2008 Not Available [facility] 07/19/2020 03:19:38 What Is Your Level Of Alcohol Consumption? Occasional [id number] Information not available 07/19/2020 What Is Your Level Of Caffeine Consumption? Moderate [id number] Information not available 07/19/2020 What Type Of Diet Are You Following? REGULAR [id number] Information not available 07/19/2020 Which Illicit Or Recreational Drugs Have You Used? No [id number] Information not available 07/19/2020 Do You Reside In Or Have You Traveled To An Area Where Ebola Virus Transmission Is Active? 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 08/12/2017 [id number] Information not available 07/19/2020 Are You Sexually Active? No [id number] Information not available 07/19/2020 How Much Tobacco Do You Smoke? No [id number] Information not available 07/19/2020 General Stress Level Medium Information not available 05/14/2013 How Many Years Have You Smoked Tobacco? 40 [id number] Information not available 07/19/2020 Sex: Unknown Functional Status Question Answer Note LastModified by [employer] Details LastModified Time What is your exercise level? Occasional [id number] Information not available 07/19/2020 Mental Status None recorded. Family History Relationship Description Onset Age of this Age Resolved Age Notes LastModified by Organization Details LastModified Time Mother Problem copd, ishmaelvalentine powers (previ ously record ed as Other) Not available 03/07/2015 15:19:49 Mother Hypertensive disorder previo usly record ed as Hypert ension Not available 03/07/2015 15:19:49 Paternal Aunt Malignant tumor of breast 75 previo usly record ed as Breast Cancer Not available 03/07/2015 15:19:49 Medical History Condition Response Anesthesia complications N High Blood Pressure Y Depression N Lung Disease Y Defects or Inherited Disease N History of Ovarian Cancer N BRCA testing in past N Anxiety Disorder N Arthritis Y Infertility N History of Cancer N Endometriosis N Thyroid Problems N Kidney or Bladder Problems N GI Problems N Anemia N History of Breast Cancer Y Psychiatric Illness N Diabetes N Headaches or Migraines Y Asthma Y Hepatitis N Heart Disease N Hypertension Y Gynecological History Statement/Question Response If Post Menopausal, Age at Menopause 52 Age at Menarche 14 Age at First Child 25 Obstetrics History GPAL:G 2 P 2 0 0 2 Type Value Full Term 2 Living 2 Total 2 Immunizations Vaccine Type Date Status Note Provider Nam e and Address Organization Details Recorded Time influenza, unspecified formulation 2 completed RAYO Espinoza in [facility], 05/14/2013 08:58:07 Influenza, split virus, trivalent, preservative 4 completed RAYO Quezada in [facility], 03/07/2015 14:47:17 influenza, unspecified formulation 7 completed RAYO Quezada in [facility], 08/12/2017 11:50:33 Past Encounters Encounter ID Performer Location Encounter Start Date Encounter Closed Date Diagnosis/Indication Diagnosis SNOMED-CT Code Diagnosis ICD10 Code Diagnosis Note [id number] Kathy RODRIGUEZ MD [address] [place] [address] 05/14/2013 08:37:45 05/14/2013 14:21:03 [id number] BLANCA RODRIGUEZ MD [address] [facility] [place] [address] 03/07/2015 14:27:21 03/07/2015 16:23:25 Specialized medical examination [id number] Screening for malignant neoplasm of rectum [id number] Screening mammography [id number] Personal h istory of primary malignant neoplasm of breast [id number] MD BLANCA Dominguez MD [address] [place] [address] 08/12/2017 11:36:45 08/12/2017 15:21:31 Cares for self 345667044 Z76.89 Infiltrati ng lobular carcinoma of breast 270772085 C50.419 Health Concerns Section Related Observation LastModified by Organization Detai ls LastModified Time None Recorded Concern Status LastModified by Organization Details LastModified Time None Recorded Advance Directives Directive None Recorded Payers Encounter Date Sequence Insurance Name Policy Number Policy Nieto Covered Member ID Nieto Member ID Guarantor Name 05/14/2013 1 [facility] [place] [employer] [facility] [employer] (HMO) [id number] Fanny Cabrera [id number] Fanny Cabrera 03/07/2015 1 [facility] [employer] - - [place] (EPO) [id number] Fanny Cabrera [id number] Fanny Cabrera 08/12/2017 1 [facility] [employer] (EPO) [id number] Fanny Cabrera [id number] Fanny Cabrera Notes Date Note Type Note Provider Name and Address Organization Details Recorded Time 08/12/2017 text/html She is here to discuss the results of her recent left breast biopsy, showing infiltrating lobular carcinoma, Grade 1. 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 The 07/23/17 mammo showd the 5 mm mass is in the upper outer quadrant of the left breast at the 2 o'clock, 5 cm from the nipple.Prior mammos were 01/2017 unilateral, which showed a 3 mm nodule stable since 07/2016, and prior was 07/2016 screening, showing a 3 to 4 mm nodule thought to be intramammary lymph node. She has a past history of right breast DCIS in 1993, treated with lumpectomy and radiation therapy.She was tested for BRCA 1 and BRCA 2 in 04/2013, and was negative. We have only seen her here twice, once for annual in 04/2013, and again for annual in 02/2015. Note from 2012:She is here for her annual exam, is doing well, she has not been here prior to this. She has a past history of breast cancer, DCIS, at age 44, treated with lumpectomy and RTx. . She also has a paternal aunt who had breast cancer at age 75. No on in the family has had BRCA testing. She has been having knee and back pain. Last bone density was 3 years ago, normal. Blanca Rodriguez MD [address] [place] [address],[address], [place], [address], [place] - [facility], 08/12/2017 14:02:10 OBGyn Episode No OBEpisode recorded.
--- OUTSIDE RECORDS SUMMARY | 2024-11-04 20:39 | XMS_ITS | Clinical Summary ---
Author Organization 175 [facility] Address [address] [place] [address] Phone Care Team Providers Care Reshipping Clerk Name Role Phone Fallon Ramey MD Primary Care Prov ider Allergies Active Allergy Reactions Criticality Noted Date Comments Cyclobenzaprine Nausea And Vomiting 06/16/2008 Pt states allergic to ALL muscle relaxants Iodinated Contrast Media 06/27/2006 Other Reaction(s): Hives/Urticaria 30 years ago Nickel 10/01/2017 Pentazocine Lactate 09/11/2005 Other Reaction(s): OTHER Dosent remember Medications FLUoxetine (PROzac) 40 mg capsule Take 1 Capsule by mouth daily. Active metoprolol succinate (TOPROL-XL) 100 mg 24 hr tablet Take 1 tablet by mouth once daily Active montelukast (SINGULAIR) 10 mg tablet Take 1 Tablet by mouth at bedtime. 024 Active PARoxetine (PAXIL) 40 mg tablet TAKE 1 TABLET BY MOUTH IN THE MORNING Active spironolactone (ALDACTONE) 25 mg tablet Take 1 Tablet by mouth daily. 024 Active fluticasone-umecl idinium-vilantero l (Trelegy Ellipta) 200-62.5-25 mcg inhaler Active cholecalciferol (VITAMIN D-3) 25 mcg (1,000 unit) capsule Take 1 Capsule by mouth daily. Active albuterol HFA (PROAIR HFA ; PROVENTIL HFA ; VENTOLIN HFA) 90 mcg/actuation inhaler Inhale 2 puffs by mouth every 6 (six) hours if needed for wheezing. Inhale 2 Puffs into the lungs every 6 hours as needed for Cough or Wheezing. 25.5 g 025 Active hydroCHLOROthiazi de (HYDRODIURIL) 25 mg tablet Take 1 tablet by mouth once daily 90 tablet 025 Active ipratropium-albut Lotus (DUONEB) 0.5-2.5 mg/3 mL nebulizer solutionIndicatio ns:Chronic bronchitis, unspecified chronic bronchitis type (CMS/HCC) Take 3 mL by nebulization 3 (three) times a day. 810 mL 1 025 2024 Active LORazepam (ATIVAN) 0.5 mg tablet Take 1 tablet (0.5 mg total) by mouth every 8 (eight) hours if needed for anxiety. Max Daily Amount: 1.5 mg 30 tablet 025 2024 Active simvastatin (ZOCOR) 40 mg tablet TAKE 1 TABLET BY MOUTH AT BEDTIME 90 tablet 1 025 Active albuterol HFA (PROAIR HFA ; PROVENTIL HFA ; VENTOLIN HFA) 90 mcg/actuation inhaler Inhale 2 Puffs into the lungs every 6 hours as needed for Cough or Wheezing. 024 2024 Discontinued(R eorder) hydroCHLOROthiazi de (HYDRODIURIL) 25 mg tablet Take 1 Tablet by mouth daily. 024 2024 Discontinued ipratropium-albut Lotus (DUONEB) 0.5-2.5 mg/3 mL nebulizer solution Inhale 3 mL into the lungs every 6 hours as needed (every 6 hours as needed). 023 2024 Discontinued(R eorder) LORazepam (ATIVAN) 0.5 mg tablet Take 1 Tablet by mouth 2 times daily as needed for Anxiety. 024 2024 Discontinued(R eorder) simvastatin (ZOCOR) 40 mg tablet TAKE 1 TABLET BY MOUTH AT BEDTIME 024 2024 Discontinued ondansetron ODT (ZOFRAN-ODT) 4 mg disintegrating tablet Take 1 Tablet by mouth every 8 hours as needed for Nausea for up to 7 days. 2024 Discontinued(T herapy completed) neomycin (MYCIFRADIN) 500 mg tablet Take 1 Tablet by mouth See Admin Instructions. Take 1 tab by mouth at 2pm, 3pm, and 8pm the day before surgery 2024 Discontinued(T herapy completed) LORazepam (ATIVAN) 0.5 mg tablet Take 1 tablet (0.5 mg total) by mouth 1 (one) time each day if needed. Max Daily Amount: 0.5 mg 018 2024 Discontinued(T herapy completed) predniSONE (DELTASONE) 10 mg tablet Take 1 tablet (10 mg total) by mouth 1 (one) time each day for 10 days. 10 each 025 2024 Discontinued(T herapy completed) sulfamethoxazole- trimethoprim (BACTRIM DS,SEPTRA DS) 800-160 mg per tablet Take 1 tablet by mouth 2 (two) times a day for 7 days. 14 each 025 2024 Discontinued(T herapy completed) predniSONE (DELTASONE) 10 mg tablet Take 6 [...] each day for 2 days. 42 tablet 025 2024 Active Problems Problem Noted Date Diagnosed Date Severe obesity (BMI 35.0-35.9 with comorbidity) 06/10/2024 PAF (paroxysmal atrial fibrillation) 03/11/2024 Diverticulitis of colon with perforation 024 Type 2 diabetes mellitus wit hout complication, without long-term current use of insulin 12/07/2020 Mild episode of recurrent major depressive disor vicenta 04/18/2020 Morbid obesity 02/20/2020 HTN (hypertension), benign 10/01/2017 Type 2 diabetes mellitus with obesity 04/22/2016 Osteopenia 02/02/2016 COPD (chronic obstructive pulmonary disease) 09/2010 Overview (06/10/2024): 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 08/28 - PFT - Moderate obstructive ventilatory defect without reversibility Chronic back pain 09/03/2008 Overview (06/10/2024): Hyperlipidemia 06/21/2008 Anxiety 06/16/2008 Essential hypertension, benign 05/08/2007 Female stress incontinence 09/11/2005 Encounters Date Type Department Care Team Description 10/19/2024 2:30 PM EST Office Visit Adult [facility] [address] [place] [address] Fallon Stephen MD Type 2 diabetes mellitus with obesity ([facility]) (Primary Dx); Essential hypertension, benign; Chronic bronchitis, unspecified chronic bronchitis type ([facility]) 10/08/2024 Telephone Adult [facility] [address] [place] [address] Fallon Stephen MD Shortness of Breath (/); COPD from Last 3 Months Immunizations Name Administration Dates Next Due Influenza Quadravalent, MDCK , 0.5ml, with preservative (Flucelvax) 6mo and older 08/02/2017 Influenza trivalent, 0.5mL ( Fluzone High-dose) 65yo and older 06/19/2023,08/03/2021,06/13/2020,06/23,07/25/2018 Influenza trivalent, with pr eservative (Fluzone; Afluria) 6mo and older 07/16/2014,07/15/2013,06/20/2011,06/02,06/15/2009,06/16/2008 Influenza, Unspecified 07/17/2017,2014,06/16/2014,06/27,09/16/2011 Moderna (age 6mo & older) Bi valent, COVID-19, 0.5 mL or 0.25 mL dosage 07/20/2022 Moderna SARS-CoV-2 COVID-19, mRNA, LNP-S, preservative free 12/22/2021 Pneumococcal conjugate 13 va lent (Prevnar 13, PCV13) 2mo and older 03/21/2018 Pneumococcal polysaccharide 23 valent (Pneumovax 23) 2yo and older 12/01/2019,11/29/1999 Td Tetanus diptheria (Tdvax) 7yo and older 11/16/2003 Tdap Tetanus diptheria acell ular pertussis (Boostrix; Adacel) 7yo and older 01/21/2013 Surgical History Surgery Date Site/Laterality Comments TUBAL LIGATION PROCEDURE: HISTORICAL TUBAL LIGATION TONSILLECTOMY PROCEDURE: HISTORICAL TONSILLECTOMY PARTIAL HYSTERECTOMY PROCEDURE: GA SUPRACERVICAL ABDL HYSTER W/WO RMVL TUBE OVARY SALPINGOOPHORECTOMY 06/23 PROCEDURE: GA LAPAROSCOPY W/RMVL ADNEXAL STRUCTURES; COMMENT: Agustin tumor right ovary, had laparoscopic BSO. COLONOSCOPY 01/24/09 PROCEDURE: GA COLONOSCOPY STOMA DX INCLUDING COLLJ SPEC SPX; COMMENT: Up to cecum, Adequate preparation, normal colon exam TOTAL KNEE ARTHROPLASTY 04/29 Left PROCEDURE: HISTORICAL TOTAL KNEE REPLACE; COMMENT: Dr. Anand BREAST BIOPSY PROCEDURE: BX BREAST; PERC NEEDLE CORE W/IMAG GUID; COMMENT: rt. breast bx. x 2 BREAST LUMPECTOMY 02/1993 Right PROCEDURE: HISTORICAL BREAST LUMPECTOMY; COMMENT: right breast lumpectomy BREAST LUMPECTOMY 08/29/2017 Left PROCEDURE: HISTORICAL BREAST LUMPECTOMY; COMMENT: Dr Payton OTHER SURGICAL HISTORY 09/18/2017 Left PROCEDURE: HISTORY OTHER; COMMENT: evacuation of hematoma; re-excision lumpectomy Medical History Medical History Date Comments Female stress incontinence DX:Fe male stress incontinence COPD (chronic obstructive pu lmonary disease) ([facility]/HCC) 11/14/2010 DX:COPD (chronic obstructive pulmonary disease) ([facility]) History of compression fract ure of spine 12/09/2018 DX:History of compression fr acture of spine Anxiety 06/16/2008 DX:Anxiety Hyperlipidemia 06/21/2008 DX:Hyperlipidemi a Chronic back pain 09/03/2008 DX:Chronic majo k pain; COMMENT: History of breast cancer in female 08/30/2017 DX:History of breast cancer in female; COMMENT: Left lumpectomy, sentinal node bx 08/29/17, grade I infiltrating lobular ca. Stage I, ER positive, negative sentinel lymph node, sees and Dr. Castaneda Prior DCIS, right, lumpectomy and radiation age 44, tamoxifen x 5 yrs, several yrs later. History of total knee replacement 04/27/2014 DX:History of total knee replacement Major depressive disorder, s kody episode, moderate ([facility]/HCC) 04/27/2016 DX:Major depressive disord er, single episode, moderate ([facility]) Osteopenia 02/02/2016 DX:Osteopenia Prediabetes 04/22/2016 DX:Prediabetes Severe obesity (BMI 35.0-35. 9 with comorbidity) ([facility]/HCC) 04/29/2017 DX:Severe obesity (BMI 35.0- 35.9 with comorbidity) ([facility]) H/O total knee replacement, bilateral 04/27/2014 DX:H/O total knee replacement, bilateral Venous insufficiency of left leg DX:Venous insufficiency of left leg; COMMENT: endovenous laser ablation, dr. Moreno, 10/30/2021 Family History Medical History Relation Name Comments Glaucoma Daughter Hypertension Daughter Lung cancer Daughter COPD Father Heart attack Mother Hypertension Mother Glaucoma, COPD No Known Problems Sister Drug abuse Son Relation Name Status Comments Daughter Father Mother Sister Alive Son Alive Social History Tobacco Use Types Packs/Day Years [...] on file Sexual Orientation Not on file Obstetrics History Last Filed Vital Signs Vital Sign Reading Time Taken Comments Blood Pressure 118/55 10/19/2024 2:34 PM EST Pulse 76 10/19/2024 2:34 PM EST Temperature 36.9 ??C (98.5 ??F) 10/19/2024 2:34 PM ES T Respiratory Rate - - Oxygen Saturation - - Inhaled Oxygen Concentration - - Weight 92.1 kg (203 lb) 10/19/2024 2:34 PM EST Height 160 cm (5' 3 ) 06/16/2024 1:05 PM EDT Body Mass Index 35.96 06/16/2024 1:05 PM EDT Plan of Treatment Upcoming Encounters Date Type Department Care Team (Late st Contact Info) Description 11/06/2024 2:15 PM EST Office Visit Pulmonolgy - [place] [address] [facility] [address] [place] [address] Raisa Guzman MD 175 [facility] [address] [place] [address] 11/24/2024 9:30 AM EDT Office Visit General Surgery - [place] [address] [facility] [address] [place] [phone] Allen Ramesh MD 175 [facility] [address] [place] [address] 04/20/2025 1:15 PM EDT Office Visit Adult [facility] [address] [place] [address] Fallon Ramey MD [address] [place] [address] Health Maintenance Due Date Last Done Comments Diabetes: Annual Foot Exam 1959 Diabetes: Annual Retina Eye Exam 1959 Zoster Vaccines (1 of 2) 1968 Lung Cancer Screening (Low Dose CT) 08/24/2022 Medicare Annual Wellness Visit 08/24/2022 Osteoporosis Screening (Bone Density Screening) 08/24/2022 Social Influencers of Health Screening 08/24/2022 DTaP,Tdap,and Td Vaccines (3 - Td or Tdap) 01/21/2023 01/21/2013, 11/16/2003 RSV Immunization Patients 60+ Years Old (1 - 1-dose 75+ series) 2024 COVID-19 Vaccine ( - season) 2024 07/20/2022, 12/22/2021, 12/14/2020, Additional history exists Diabetes: Annual Urine Albumin-Creatinine Ratio (uACR) 06/19/2024 06/19/2023 Diabetes: Blood Sugar Control Test (HGBA1C) 10/18/2024 04/17/2024, 04/17/2024 Colorectal Cancer Screening: Stool Based Tests (FOBT/FIT) 10/22/2024 10/22/2023, 10/22/2023 Falls Risk Assessment 10/22/2024 10/22/2023 Depression Screening 04/17/2025 04/17/2024 Diabetes: Annual GFR (Glomerular Filtration Rate) 04/17/2025 04/17/2024, 04/17/2024 Hypertension/CHF/CAD Annual BMP Blood Test 04/17/2025 04/17/2024, 04/17/2024 Cholesterol Screening (Lipid Panel) 06/19/2028 06/19/2023 Hepatitis C Screening Completed 03/23/2014 Pneumococcal Vaccine: 50+ Years Completed 12/01/2019, 03/21/2018, 11/29/1999 Breast Cancer Screening Discontinued 06/28/2023, 10/31 Influenza Vaccine Completed 06/15/2024, , 08/21/2022, Additional history exists HIB Vaccines Aged Out No longer eligi ble based on patient's age to complete this topic HPV Vaccines Aged Out No longer eligi ble based on patient's age to complete this topic Hepatitis A Vaccines Aged Out No long er eligible based on patient's age to complete this topic Hepatitis B Vaccines Aged Out No long er eligible based on patient's age to complete this topic IPV Vaccines Aged Out No longer eligi ble based on patient's age to complete this topic MMR Vaccines Aged Out No longer eligi ble based on patient's age to complete this topic Meningococcal ACWY Vaccine Aged Out N o longer eligible based on patient's age to complete this topic Meningococcal B Vacine Aged Out No lo nger eligible based on patient's age to complete this topic RSV Immunization Patients Under 20 months Aged Out No longer eligible based on patient's age to complete this topic Varicella Vaccines Aged Out No longer eligible based on patient's age to complete this topic Procedures Procedure Name Priority Date/Time Associated Diagnosis Comments DEPRESSION SCREENING Routine 04/17/2024 ANNUAL BMP BLOOD TEST Routine 04/17/2024 HEMOGLOBIN A1C Routine 04/17/2024 FALLS RISK ASSESSMENT Routine 10/22/2023 STOOL BASED TEST Routine 10/22/2023 ASHUTOSH SCREENING DIGITAL Routine 06/28/2023 5:20 PM EDT Encounter for screening mammogram for malignant neoplasm of breast URINE ALBUMIN CREATININE RATIO Routine 06/19/2023 LIPID PANEL Routine 06/19/2023 HEPATITIS C SCREENING Routine 03/23/2014 from Last 3 Months or Most Recently Relevant to Health Maintenance Results * Annual BMP Blood Test (04/17/2024) Pathologist [facility] Annual BMP Blood Test Abstracted Result [facility] Provider HEALTH MAINTENANCE Final Result * Depression Screening (04/17/2024) Pathologist [facility] Depression Screening Abstracted [facility] Provider HEALTH MAINTENANCE Final Result * Hemoglobin A1c (04/17/2024) [facility] Hemoglobin A1C 6.3 <=6.5 % Blood Venous blood specimen / Unknown Result [facility] Provider LAB BLOOD ORDERABLES Lou l Result * Falls Risk Assessment (10/22/2023) [facility] Falls Risk Assessment Abstracted Result [facility] Provider HEALTH MAINTENANCE Final Result * Stool Based Tests (FOBT/FIT) (10/22/2023) Pathologist [facility] Colorectal Cancer Screening: Stool Based Tests Abstracted, no interpretation [facility] Provider HEALTH MAINTENANCE Final Result * ASHUTOSH SCREENING DIGITAL (06/28/2023 5:20 PM EDT) Anatomical Region Laterality Modality Mammography 06/28/2023 1:10 PM EDT Narrative 06/28/2023 5:20 PM EDT [facility] Diagnostic Imaging Department [address] [place] [id number] Patient: ??MINOR,FANNY ?/Age/Sex: 1950 - 73 - F Unit#: ??[id number] ? Location/Status: ??SPDIMAM/REG CLI ? Mnemonic/Ordering Site: ??DIGSC/SPMAM Ordering Physician: ??FALLON RAMEY MD [facility] Screening Digital - 06/28/23 - 1326 Report Status:Signed EXAM: [facility] Screening Digital EXAM DATE AND TIME: 06/28/2023 1:27 PM HISTORY: ??Screening. Personal history of bilateral breast carcinoma treated with lumpectomy followed by radiation treatment (right breast in 1992, left breast 2016). COMPARISON: ??11/08/21, 05/08/21, 10/31/20, 10/14/19, 07/24/18, needle localization procedure images from 2017 TECHNIQUE: Bilateral digital breast tomosynthesis was performed in the CC and MLO projections. Computer aided detection with [employer] 3D 3.1 was employed. TISSUE DENSITY: b. There are scattered areas of fibroglandular density. FINDINGS: Lumpectomy changes are seen in the anterior right breast, with skin thickening and retraction, unchanged, and in the upper outer left breast, including focal asymmetry, surgical clip, and skin thickening and retraction, stable from previous. No suspicious masses, grouped microcalcifications, or developing architectural distortion are seen. Few benign rim and secretory calcifications are again noted. Vascular calcification is present. IMPRESSION: Stable mammographic appearance of the breasts, including bilateral lumpectomy changes. ??No evidence of malignancy is seen. A negative mammogram in the presence of a clinically suspicious palpable abnormality does not preclude the possibility of malignancy or alter the indications for biopsy. BI-RADS: ??Category 2: Benign RECOMMENDATION(S): 1: Routine screening mammogram BILATERAL in 1 year. Dictating Physician: ??ERICA MCFARLAND MD Electronically Signed by: ??ERICA MCFARLAND MD Dic Date/Time: ??06/28/231717 Sign date/Time: ??06/28/231719 Procedure Note Erica Mcfarland MD - 10/22/2023 [facility] Diagnostic Imaging Department [address] [place] [address] Patient: FANNY CABRERA /Age/Sex: 1950 - 73 - F Unit#: [id number] Location/Status: [facility] CLI Mnemonic/Ordering Site: [facility] Ordering Physician: FALLON RAMEY MD [facility] Screening Digital - 06/28/23 - 1326 Report Status:Signed EXAM: [facility] Screening Digital EXAM DATE AND TIME: 06/28/2023 1:27 PM HISTORY: Screening. Personal history of bilateral breast carcinomatreated with lumpectomy followed by radiation treatment (right breast in 1992,left breast 2016). COMPARISON: 11/08/21, 05/08/21, 10/31/20, 10/14/19, 07/24/18, needlelocalization procedure images from 2017 TECHNIQUE: Bilateral digital breast tomosynthesis was performed in the CCand MLO projections. Computer aided detection with [employer] 3D 3.1was employed. TISSUE DENSITY: b. There are scattered areas of fibroglandular density. FINDINGS: Lumpectomy changes are seen in the anterior right breast, with skinthickening and retraction, unchanged, and in the upper outer left breast, includingfocal asymmetry, surgical clip, and skin thickening and retraction, stablefrom previous. No suspicious masses, grouped microcalcifications, or developingarchitectural distortion are seen. Few benign rim and secretory calcifications areagain noted. Vascular calcification is present. IMPRESSION: Stable mammographic appearance of the breasts, including bilaterallumpectomy changes. No evidence of malignancy is seen. A negative mammogram in the presence of a clinically suspicious palpable abnormality does not preclude the possibility of malignancy or alter the indications for biopsy. BI-RADS: Category 2: Benign RECOMMENDATION(S): 1: Routine screening mammogram BILATERAL in 1 year. Dictating Physician: ERICA MCFARLAND MD Electronically Signed by: ERICA MCFARLAND MD Dic Date/Time: 06/28/231717 Sign date/Time: 06/28/231719 Fallon Ramey MD IM BI PROCEDURES Final Result * Urine Albumin Creatinine Ratio (06/19/2023) Urine Albumin Creatinine Ratio Abstracted Historical Provider HEALTH MAINTENANCE Final Result * (ABNORMAL) Lipid panel (06/19/2023) LDL/HDL Ratio 4 0 - 4 Triglycerides 155(A) 0 - 150 mg/dL Cholesterol 168 0 - 200 mg/dL HDL 42 >=40 mg/dL LDL Cholesterol 95 0 - 100 mg/dL Blood Venous blood specimen / Unknown us Historical Provider LAB BLOOD ORDERABLES Lou l Result * Hepatitis C Screening (03/23/2014) Hepatitis C Screening Abstracted Historical Provider HEALTH MAINTENANCE Final Result from Last 3 Months or Most Recently Relevant to Health Maintenance Insurance [employer] - [place] MEDICARE ADVANTAGE Care Teams Reshipping Clerk Relationship Specialty Start Date End Date Fallon Ramey MD [address] [place] [phone] PCP - General Internal Medicine 08/27/24
--- OUTSIDE RECORDS SUMMARY | 2024-11-04 20:39 | XMS_ITS | Clinical Summary ---
Author Organization [facility] Address [address] [place] [address] Care Team Providers Care Seismographer Name Role Phone Fallon Ramey MD Primary Care Prov ider Allergies Active Allergy Reactions Criticality Noted Date Comments Cyclobenzaprine Nausea And Vomiting 06/16/2008 Pt states allergic to ALL muscle relaxants Iodinated Contrast Media 10/01/2017 Nickel 10/01/2017 Medications Medication Sig Dispensed Refills Start Date End Date Status metoprolol succinate (TOPROL-XL) 24 hr tablet 100 mg TAKE 1 TABLET BY MOUTH EVERY DAY 1 09/24/2017 Active hydrochlorothiazide (HYDRODIURIL) tablet 25 mg Take 25 mg by mouth daily. 1 09/03/2017 Active ipratropium-albutero l (DUO-NEB) 0.5-2.5 mg/mL nebulizer INHALE 3 ML VIAL VIA NEBULIZER MACHINE INTO THE LUNGS 4 TIMES DAILY NEEDED (SOB OR WHEEZING). 1 09/24/2017 Active PARoxetine (PAXIL) 30 MG tablet Take 30 mg by mouth every morning. 0 09/16/2017 Active simvastatin (ZOCOR) tablet 40 mg Take 40 mg by mouth every night at bedtime. 0 Active montelukast (SINGULAIR) 10 MG tablet Take 10 mg by mouth every night at bedtime. 0 Active Ipratropium [place] (ATROVENT IN) Inhale 2 inhalations into the lungs as needed. 0 Active Fluticasone-Umeclidi n-Vilant (TRELEGY ELLIPTA IN) Inhale into the lungs daily. 0 Active albuterol (PROVENTIL HFA;VENTOLIN HFA) 108 (90 Base) MCG/ACT inhaler Inhale 2 puffs into the lungs as needed for wheezing. 0 Active spironolactone (ALDACTONE) tablet 25 mg Take 25 mg by mouth daily. 0 Active gabapentin (NEURONTIN) 100 MG capsule Take 100 mg by mouth 3 (three) times a day. 0 06/09/2021 Active LORazepam (ATIVAN) 0.5 MG tablet Take 1 tablet by mouth daily as needed. 0 10/22/2017 Active roflumilast (Daliresp) 500 MCG tablet Take 1 tablet by mouth daily. 0 Active Active Problems Problem Noted Date Diagnosed Date History of tobacco use, presenting hazards to [facility] 02/12/2019 Malignant neoplasm of lower- outer quadrant of left breast of female, estrogen receptor positive 10/01/2017 Cancer Staging:Pathologic stage from 08/29/2017:Stage IA(pT1a(2), pN0(sn), cM0, G1, ER: Positive, IA: Positive, HER2: Negative) - Signed by Jose Angel Castaneda MD on 10/10/2019 HTN (hypertension), benign 10/01/2017 COPD (chronic obstructive pu lmonary disease) with chronic bronchitis 10/01/2017 Chronic left-sided low back pain with left-sided sciatica 10/01/2017 Hyperlipidemia LDL goal <160 10/01/2017 Depression with anxiety 10/01/2017 Arthritis of multiple sites 10/01/2017 Osteopenia of left thigh 10/01/2017 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 Resolved Problems Problem Noted Date Diagnosed Date Resolved Date Intermittent asthma 10/01/2017 10/01/19 18 History of ductal carcinoma in situ (DCIS) of breast 10/01/2017 07/01/2021 Family History Medical History Relation Name Comments Heart attack Father Prostate cancer Father COPD Mother Breast cancer Paternal Aunt Ovarian cancer Neg Hx Pancreatic cancer Neg Hx Relation Name Status Comments Father (Age 93) [place] at 93, prostate ca at 80 Mother (Age 83) Paternal Aunt DCIS at age 76 Social History Tobacco Use Types Packs/Day Years Used Date Smoking Tobacco: Former Cigarettes 1.5 40 1 967 - 2006 Smokeless Tobacco: Never Tobacco Cessation:Counseling Given: Yes Comments:advised of michaely for lung cancer screening 07/08/18 Alcohol Use Standard Drinks/Week Comments Yes 0 (1 standard drink = 0.6 oz pur e alcohol) rare Sex and Gender Information Value Date Recorded Sex Assigned at Not on file Gender Identity Not on file Sexual Orientation Not on file Job Start Date Occupation Industry Not on file Not on file Not on file Last Filed Vital Signs Vital Sign Reading Time Taken Comments Blood Pressure 140/55 12/26/2021 2:10 PM EDT Pulse 75 12/26/2021 2:10 PM EDT Temperature 36.6 ??C (97.8 ??F) 12/26/2021 2:10 PM ED T Respiratory Rate - - Oxygen Saturation 95% 12/26/2021 2:10 PM EDT Inhaled Oxygen Concentration - - Weight 95.2 kg (209 lb 12.8 oz) 12/26/2021 2:10 PM EDT Height 157.5 cm (5' 2 ) 12/26/2021 2:10 PM EDT Body Mass Index 38.37 12/26/2021 2:10 PM EDT Plan of Treatment Health Maintenance Due Date Last Done Comments Hepatitis C Screening 1950 Lung Cancer Screening (Low Dose CT) 1949 COVID-19 Vaccine (#1) 1954 Depression Screening 1961 BMI Counseling 1967 Preventative Health Evaluation 1967 Shingrix-Zoster Vaccine (1 of 2) 1968 Colon Cancer Screening (Colonoscopy) 1994 Pneumococcal Vaccine (2 of 2 - PCV) 11/28/2000 11/29/1999 Fall Risk Assessment 2014 Osteoporosis Screening (DEXA Scan) 2014 DTap / Tdap / Td (2 - Td or Tdap) 01/21/2023 01/21/2013 RSV Adult > 60+ Yrs or (1 - 1-dose 75+ series) 2024 Influenza Vaccine (#1) 2024 7, 07/16/2014, 06/16/2014, Additional history exists Hepatitis B Vaccines Aged Out No long er eligible based on patient's age to complete this topic RSV Ped < 20 months Aged Out No longe r eligible based on patient's age to complete this topic Care Teams Seismographer Relationship Specialty Start Date End Date Fallon Ramey MD PCP - General Internal Medicine 06/27/21
[2024-11-04 21:24] VITALS: PULSE 82; RESP 16; O2SAT 96
[2024-11-04 21:46] VITALS: O2SAT 83
--- NOTE | 2024-11-04 21:46 | PC.NURSE ---
Attempted walking O2 sat w/ patient, upon standing desat to 83% w/ perfect pleth, patient assisted back to bed, O2 dropped as low as 76%, Dr. Álvarez made aware. RT called for treatment
[2024-11-04 22:07] VITALS: BP 156/73; PULSE 89; RESP 16; TEMP 36.9; O2SAT 93
--- NOTE | 2024-11-04 22:42 | P.HPHOSP_ITS ---
History of Present Illness Date of Service: 11/04/24 Attending physician on admission: Julia Herr Chief Complaint: wheezing, SOB, cough Patient is 74-year-old female with a past medical history significant for combined asthma and COPD, HTN, history breast cancer and HLD, who presented to the ED due to shortness of breath for weeks, worsening, cough wheezing. She reports that she was diagnosed with the flu 1 week ago. She has had a nonproductive cough and was satting at 80% on room air when EMS arrived. She was given Solu-Medrol and DuoNeb with good improvement. Review of Systems 2 Constitutional: Constitutional: Denies body ache(s), Denies fatigue, Denies fever(s) and Denies headache(s) Eyes: Eyes: Denies change in vision and Denies photophobia ENT: Denies headache(s), Reports nasal congestion, Reports nasal discharge and Denies sore throat Cardiovascular: Cardiovascular: Denies chest pain, Denies rapid heart rate, Denies lightheadedness, Reports dyspnea and Reports dyspnea on exertion Respiratory: Respiratory: Reports cough, Reports dyspnea, Reports dyspnea on exertion and Reports wheezing Gastrointestinal: Gastrointestinal: Denies constipation, Denies diarrhea, Denies nausea and Denies vomiting Genitourinary: Genitourinary: Denies hematuria, Denies difficulty voiding, Denies dysuria and Denies urinary urgency Musculoskeletal: Musculoskeletal: Denies myalgias Integumentary/Breasts: Skin/Breast: Denies rash Neurologic: Denies confusion and Denies headache(s) Psychiatric: Psychiatric: Denies confusion Endocrine: Endocrine: Denies fatigue Hematologic/Lymphatic: Hematologic/Lymphatic: Denies easy bleeding and Denies easy bruising Allergic/Immunologic: Allergic/Immunologic: Reports wheezing [facility] Medical History (Updated 11/04/24 @ 23:01 by Kasandra Montano PA-C) COPD with asthma HTN (hypertension) HLD (hyperlipidemia) Functional capacity: independent ambulation Social History Smoked in Last 30 Days: No Use of substances other than those prescribed or required for medical reasons: No Advance Directives: Yes Advance Directives Information Provided: No Advance Directives on File: No Do you have a plan to hurt others: No Plan Narrative: No smoking or drug use, occasional alcohol once monthly Meds Allergies Allergy/AdvReac Type Severity Reaction Status Date / Time No Known Allergies Allergy Verified 11/04/24 19:29 Active Medications: Current Medications Acetaminophen (Acetaminophen 325 Mg Tablet) 650 mg PO Q6H PRN PRN Reason: Pain, Mild 1-3,fever,headache Albuterol/Ipratropium (Albuterol/Iprat 2.5/0.5mg 3 Ml Ampul.Neb) 3 ml INHALE Q4H PRN PRN Reason: Shortness of Breath/Wheezing Albuterol/Ipratropium (Albuterol/Iprat 2.5/0.5mg 3 Ml Ampul.Neb) 3 ml INHALE RQ4H WHILE AWAKE [facility] Benzonatate (Benzonatate 100 Mg Capsule) 100 mg PO TID PRN PRN Reason: Cough Calcium Carbonate (Calcium Carbonate 750 Mg Tab.Chew) 750 mg PO Q4H PRN PRN Reason: Heartburn Enoxaparin Sodium (Enoxaparin Sodium 40 Mg/0.4 Ml Syringe) 40 mg SUBCUT Q24H [facility] Magnesium Hydroxide (Milk Of Magnesia 30 Ml Oral.Susp) 30 ml PO DAILY PRN PRN Reason: Constipation Melatonin (Melatonin 3 Mg Tablet) 6 mg PO BEDTIME PRN PRN Reason: Insomnia Ondansetron HCl (Ondansetron Hcl 4 Mg/2 Ml Vial) 4 mg IVPUSH Q8H PRN PRN Reason: Nausea and Vomiting Prednisone (Prednisone 20 Mg Tablet) 40 mg PO DAILY [facility] Sodium Chloride (0.9 % Sodium Chloride Flush 3 Ml Syringe) 3 ml IVFLUSH QSHIFT [facility] Physical Exam 2 Vital Signs and Narrative: Vital Signs: Last Vital Signs Temp 98.4 F 11/04/24 22:07 Pulse 89 11/04/24 22:07 Resp 16 11/04/24 22:07 BP 156/73 H 11/04/24 22:07 Pulse Ox 93 11/04/24 22:07 O2 Del Method Nasal Cannula 11/04/24 22:07 O2 Flow Rate 2 11/04/24 22:07 Oxygen Flow Rate 2 11/04/24 19:23 BMI result Body Mass Index 38.6 General: AOx3, no acute distress Resp: CTA bilaterally, no crackles or wheezing CVS: S1, S2, RRR GI: +BS, NT, no distention Skin: Warm, dry Neuro: Cranial nerves II-XII grossly intact bilaterally. Motor grossly intact bilaterally Extremities: No LE edema Psych: Appropriate affect Const: General: No confusion Orientation/consciousness: No confusion Eyes: Direct Ophthalmoscopy: No photophobia Neuro: General: No confusion Results Labs 11/04/24 19:51 11/04/24 19:51 Labs: Laboratory Results - last 24 hr 11/04/24 11/04/24 19:51 19:55 MCV 81.9 MCH 25.7 L MCHC 31.4 RDW 14.3 Plt Count 300 MPV 8.7 L Immature Gran % (Auto) 0.6 H Neut % (Auto) 78.0 H Lymph % (Auto) 13.7 L [place] % (Auto) 4.6 Eos % (Auto) 2.8 Baso % (Auto) 0.3 Lymph # (Auto) 1.1 L [place] # (Auto) 0.4 Eos # (Auto) 0.2 Baso # (Auto) 0.0 Abs Immat Gran (auto) 0.05 H Absolute Neuts (auto) 6.2 Absolute Nucleated RBC 0.000 Nucleated RBC % (auto) 0.0 VBG pH 7.41 VBG pCO2 52 VBG pO2 30 VBG HCO3 33 H VBG O2 Saturation 41.0 VBG Base Excess 7.9 Anion Gap 13 Estim Creat Clear Calc 62.1 Estimated GFR > 60 Random Glucose 141 H Calcium 8.5 Total Bilirubin 0.2 Direct Bilirubin < 0.2 AST 34 H ALT 30 Alkaline Phosphatase 79 B-Natriuretic Peptide 50 Total Protein 6.5 Albumin 3.5 Influenza Type A (PCR) POSITIVE A Influenza Type B (PCR) NEGATIVE RSV RNA Qual (PCR) NEGATIVE SARS-CoV-2 RNA (RT-PCR) NEGATIVE Assessment and Plan (1) Acute respiratory failure with hypoxia: Status: Acute (2) Asthma exacerbation in COPD: Status: Acute (3) Flu: Status: Acute (4) Obesity (BMI 30-39.9): Status: Acute Plan Patient is 74-year-old female with a past medical history significant for combined asthma and COPD, HTN, history breast cancer and HLD, who presented to the ED due to shortness of breath for weeks, worsening, cough wheezing. Acute respiratory failure with asthma and COPD exacerbation secondary to flu - WBC 8.0, vitals stable aside from acute hypoxia, no sepsis - chest x-ray negative - flu A positive - responsive to Solu-Medrol and DuoNebs - continue Solu-Medrol 40 mg IV b.i.d. - DuoNebs q.4h p.r.n. - given IV Mag in ED - titrate off oxygen as appropriate - monitor CBC and BMP HTN - continue home meds HLD - continue home meds History breast cancer - s/p radiation and lumpectomy x2 Obesity - BMI 38.6 - weight loss encouraged Full code VTE prophylaxis: Lovenox Patient with acute hypoxic respiratory failure secondary to flu a and COPD/asthma exacerbation with new oxygen requirement, requiring admission for at least 2 midnights stay for IV steroids, nebulizers and monitoring. Quality Stroke Does the patient have a stroke diagnosis?: No VTE Prior VTE?: No VTE Risk Level:: Medical - moderate - high VTE Device Contraindication: Treatment Not Indicated VTE Drug Contraindication: N/A - Med Ordered
[2024-11-04] MEDS: Enoxaparin Sodium 40 MG/0.4 ML SYRINGE SUBCUT (23:38)
[2024-11-04] MEDS: 0.9 % Sodium Chloride Flush 3 ML SYRINGE IVFLUSH (23:38)
[2024-11-04 23:52] VITALS: BP 144/54; PULSE 100; RESP 20; TEMP 36.8; O2SAT 95
[2024-11-05] VITALS (9 sets, daily range): BP systolic 141–165; BP diastolic 75–91; PULSE 87–98; RESP 14–24; TEMP 36.3–36.9; O2SAT 92–96
--- NOTE | 2024-11-05 00:31 | PC.NURSE ---
assumed care of pt at 23:15
[2024-11-05] MEDS: Acetaminophen 325 MG TABLET 650 MG PO (01:09)
[2024-11-05] MEDS: Montelukast Sodium 10 MG TABLET PO ×2 (02:49→21:38)
--- NOTE | 2024-11-05 02:54 | MHC.EDTECH ---
took pt to bathroom in wheelchair. pt tolerated well.
[2024-11-05] MEDS: LORazepam 0.5 MG TABLET PO (04:27)
--- NOTE | 2024-11-05 04:38 | PC.NURSE ---
pt reporting increased anxiety causing her to be short of breath, requesting her 0.5mg ativan that she takes at home. MD Herr aware, ordered, and administered per nov .
[2024-11-05 05:08] LABS: Basophils Percent Auto 0.2 % (0-2); Hematocrit 31.6 % (37.0-47.0); Hemoglobin 9.7 g/dl (12.0-16.0); Imm Gran Abs Auto 0.05 X10*3/uL (0.00-0.03); Imm Gran Pct Auto 0.8 % (0.0-0.4); Lymphocytes Absolute Auto 0.6 X10*3/uL (1.2-4.9); Lymphocytes Percent Auto 8.9 % (20-40); MANUAL DIFF FLAG SCAN; Mean Corpuscular HGB Conc 30.7 g/dl (31.0-35.0); Mean Corpuscular Hemoglobin 25.2 pg (27.0-33.0); Mean Corpuscular Volume 82.1 fL (80.0-98.0); Mean Platelet Volume 8.8 fL (9.4-12.3); Monocytes Absolute Auto 0.1 X10*3/uL (0.1-1.2); Monocytes Percent Auto 1.3 % (2-11); Neutrophils Absolute Auto 5.6 x10*3/uL (2.0-8.3); Neutrophils Percent Auto 88.8 % (45-73); Platelet Count 311 X10*3/uL (160-400); Red Blood Count 3.85 X10*6/uL (4.20-5.50); Red Cell Distribution Width 14.2 % (11.0-16.0); SCAN SMEAR FLAG 1; White Blood Count 6.3 X10*3/uL (4.8-10.8)
[2024-11-05 05:25] LABS: Anion Gap 15 (12-20); Blood Urea Nitrogen 20 mg/dL (9-16); Calcium 8.7 mg/dL (8.4-10.2); Carbon Dioxide 25 mmol/L (22-29); Chloride 99 mmol/L (96-108); Creatinine Clr Calc Pharmacy 62.1; Estimated Glomerular Filt Rate > 60; Glucose Random 245 mg/dL (60-115); Sodium 135 mmol/L (135-145)
[2024-11-05 05:38] LABS: SLIDE REVIEW VERIFIED
[2024-11-05] MEDS: Oseltamivir Phosphate 75 MG CAPSULE PO ×2 (07:30→19:25)
--- NOTE | 2024-11-05 08:40 | PHA.MEDREC ---
Pharmacy Consult ? Medication Reconciliation Pharmacy has reviewed the medication reconciliation completed by nursing. Spoke with patient and added on many missing medications and OTCs..
[2024-11-05] MEDS: Albuterol/Iprat 2.5/0.5MG 3 ML AMPUL.NEB INHALE ×4 (09:00→19:43)
[2024-11-05] MEDS: methylPREDNISolone Sod Succ 40 MG/ML VIAL IVPUSH ×2 (09:09→20:58)
[2024-11-05] MEDS: Metoprolol Succinate ER 100 MG TAB.ER.24H PO (09:09)
[2024-11-05] MEDS: PARoxetine HCL 40 MG TABLET PO (09:10)
[2024-11-05] MEDS: hydroCHLOROthiazide 25 MG TABLET PO (09:10)
[2024-11-05] MEDS: Spironolactone 25 MG TABLET PO (09:10)
--- NOTE | 2024-11-05 10:32 | HO.PM.IMPN ---
Subjective Subjective Date of Service: 11/05/24 Interval History: sob Physical Exam Vital Signs: Vital Signs: Last Vital Signs Temp 98 F 11/05/24 09:06 Pulse 96 11/05/24 09:06 Resp 20 11/05/24 09:06 BP 164/80 H 11/05/24 09:06 Pulse Ox 92 11/05/24 09:06 O2 Del Method Nasal Cannula 11/05/24 09:06 O2 Flow Rate 2 11/05/24 09:06 Oxygen Flow Rate 2 11/04/24 19:23 BMI result Body Mass Index 38.6 General: AO X 3, no acute distress Resp: mild exp wheeze bilateral, accessory muscles used CVS: S1,S2,RRR GI: soft, non tender, non distended Neuro: motor grossly intact, alert Psych: appropriate affect, appropriate insight Objective Data Active Medications Acetaminophen (Acetaminophen 325 Mg Tablet) 650 mg PO Q6H PRN PRN Reason: Pain, Mild 1-3,fever,headache Last Admin: 11/05/24 01:09 Dose: 650 mg Documented By: DAJUAN Albuterol/Ipratropium (Albuterol/Iprat 2.5/0.5mg 3 Ml Ampul.Neb) 3 ml INHALE Q4H PRN PRN Reason: Shortness of Breath/Wheezing Albuterol/Ipratropium (Albuterol/Iprat 2.5/0.5mg 3 Ml Ampul.Neb) 3 ml INHALE RQ4H WHILE AWAKE [facility] Last Admin: 11/05/24 09:00 Dose: 3 ml Documented By: BRESNE Benzonatate (Benzonatate 100 Mg Capsule) 100 mg PO TID PRN PRN Reason: Cough Calcium Carbonate (Calcium Carbonate 750 Mg Tab.Chew) 750 mg PO Q4H PRN PRN Reason: Heartburn Enoxaparin Sodium (Enoxaparin Sodium 40 Mg/0.4 Ml Syringe) 40 mg SUBCUT Q24H [facility] Last Admin: 11/04/24 23:38 Dose: 40 mg Documented By: MADHURI Hydrochlorothiazide (Hydrochlorothiazide 25 Mg Tablet) 25 mg PO DAILY [facility]; Protocol Last Admin: 11/05/24 09:10 Dose: 25 mg Documented By: JERONIMO Lorazepam (Lorazepam 0.5 Mg Tablet) 0.5 mg PO Q8H PRN PRN Reason: anxiety Magnesium Hydroxide (Milk Of Magnesia 30 Ml Oral.Susp) 30 ml PO DAILY PRN PRN Reason: Constipation Melatonin (Melatonin 3 Mg Tablet) 6 mg PO BEDTIME PRN PRN Reason: Insomnia Methylprednisolone Sodium Succinate (Methylprednisolone Sod Succ 40 Mg/Ml Vial) 40 mg IVPUSH BID [facility] Last Admin: 11/05/24 09:09 Dose: 40 mg Documented By: JERONIMO Metoprolol Succinate (Metoprolol Succinate Er 100 Mg Tab.Er.24h) 100 mg PO DAILY [facility]; Protocol Last Admin: 11/05/24 09:09 Dose: 100 mg Documented By: JERONIMO Montelukast Sodium (Montelukast Sodium 10 Mg Tablet) 10 mg PO BEDTIME MIRIAM Ondansetron HCl (Ondansetron Hcl 4 Mg/2 Ml Vial) 4 mg IVPUSH Q8H PRN PRN Reason: Nausea and Vomiting Oseltamivir Phosphate (Oseltamivir Phosphate 75 Mg Capsule) 75 mg PO Q12H [facility] Stop: 11/09/24 18:46 Last Admin: 11/05/24 07:30 Dose: 75 mg Documented By: JERONIMO Paroxetine HCl (Paroxetine Hcl 40 Mg Tablet) 40 mg PO DAILY [facility] Last Admin: 11/05/24 09:10 Dose: 40 mg Documented By: JERONIMO Sodium Chloride (0.9 % Sodium Chloride Flush 3 Ml Syringe) 3 ml IVFLUSH QSHIFT [facility] Last Admin: 11/05/24 07:19 Dose: Not Given Documented By: JERONIMO Non-Admin Reason: Previously Administered Spironolactone (Spironolactone 25 Mg Tablet) 25 mg PO DAILY [facility]; Protocol Last Admin: 11/05/24 09:10 Dose: 25 mg Documented By: JERONIMO Labs 11/05/24 04:57 11/05/24 04:57 Labs: Laboratory Results - last 24 hr 11/04/24 11/04/24 11/05/24 19:51 19:55 04:57 MCV 81.9 82.1 MCH 25.7 L 25.2 L MCHC 31.4 30.7 L RDW 14.3 14.2 Plt Count 300 311 MPV 8.7 L 8.8 L Immature Gran % (Auto) 0.6 H 0.8 H Neut % (Auto) 78.0 H 88.8 H Lymph % (Auto) 13.7 L 8.9 L [place] % (Auto) 4.6 1.3 L Eos % (Auto) 2.8 0.0 Baso % (Auto) 0.3 0.2 Lymph # (Auto) 1.1 L 0.6 L [place] # (Auto) 0.4 0.1 Eos # (Auto) 0.2 0.0 Baso # (Auto) 0.0 0.0 Abs Immat Gran (auto) 0.05 H 0.05 H Absolute Neuts (auto) 6.2 5.6 Absolute Nucleated RBC 0.000 0.000 Nucleated RBC % (auto) 0.0 0.0 Smear Tech's Comments VERIFIED VBG pH 7.41 VBG pCO2 52 VBG pO2 30 VBG HCO3 33 H VBG O2 Saturation 41.0 VBG Base Excess 7.9 Anion Gap 13 15 Estim Creat Clear Calc 62.1 62.1 Estimated GFR > 60 > 60 Random Glucose 141 H 245 H Calcium 8.5 8.7 Total Bilirubin 0.2 Direct Bilirubin < 0.2 AST 34 H ALT 30 Alkaline Phosphatase 79 B-Natriuretic Peptide 50 Total Protein 6.5 Albumin 3.5 Influenza Type A (PCR) POSITIVE A Influenza Type B (PCR) NEGATIVE RSV RNA Qual (PCR) NEGATIVE SARS-CoV-2 RNA (RT-PCR) NEGATIVE Assessment and Plan (1) Asthma with exacerbation: Status: Acute Plan 74F PMH moderate persistent asthma/COPD, hypertension, history of breast cancer, hyperlipidemia center for shortness of breaths Acute hypoxic respiratory failure secondary to flu complicated by COPD/moderate persistent asthma with acute decompensation Continue steroids, DuoNebs, Tamiflu Wean O2 as tolerated Hypertension Continue hydrochlorothiazide, Toprol, Aldactone Obesity Weight loss recommended DVT prophylaxis with Lovenox Full Code reason for continued hospitalization: Hypoxia and shortness of breath, using accessory muscle Quality Stroke Does the patient have a stroke diagnosis?: No VTE Prior VTE?: No VTE Risk Level:: Medical - moderate - high VTE Device Contraindication: Treatment Not Indicated VTE Drug Contraindication: N/A - Med Ordered
--- NOTE | 2024-11-05 15:51 | MHC.CM.PN ---
PT REPORTS SHE LIVES WITH HER SON AND GRANDDAUGHTER SHE IS INDEPENDENT, HAS NO DME AND NO SERVICES COPY OF HCP REQUESTED PCP: ANH BANEGAS IMM DELIVERED DCP: HOME NO SERVICES VIA FAMILY TRANSPORT
[2024-11-05] MEDS: 0.9 % Sodium Chloride Flush 3 ML SYRINGE IVFLUSH (19:26)
--- NOTE | 2024-11-05 19:30 | PC.NURSE ---
Patient arrived to ED overflow from main ED at 19:15. A&Ox4. Steady, ambulated from stretcher to bed in room 1 with standby. Denies use of assistive devices at home. +Flu., droplet precautions in place. Arrived on 2L nc, spo2 94%. Denies o2 use at baseline. Tamiflu given. Respiratory notified for breathing treatment. Breathing appears even and unlabored without distress. Denies pain, chest pain, sob, and n/v. +dp/pt, +cms. Call huerta within reach and educated on use. Safety measures in place.
[2024-11-05] MEDS: diphenhydrAMINE HCL 25 MG CAPSULE PO (20:58)
[2024-11-05] MEDS: Enoxaparin Sodium 40 MG/0.4 ML SYRINGE SUBCUT (21:38)
[2024-11-06] VITALS (7 sets, daily range): BP systolic 156–160; BP diastolic 69–74; PULSE 82–94; RESP 16–18; TEMP 36.2–36.8; O2SAT 84–94; BMI 35.5
--- NOTE | 2024-11-06 01:58 | PC.NURSE ---
This Rn assumed care at 1:40am, pt sleeping at this time. no sign of distress.
[2024-11-06] MEDS: Acetaminophen 325 MG TABLET 650 MG PO (04:44)
--- NOTE | 2024-11-06 04:46 | PC.NURSE ---
pt medicated for headache
--- NOTE | 2024-11-06 04:57 | PC.NURSE ---
Pt a&o, no sign of respiratory distress, pt able to speak in full sentences. pt resting in bed.
[2024-11-06] MEDS: Oseltamivir Phosphate 75 MG CAPSULE PO ×2 (06:09→18:06)
[2024-11-06 06:55] LABS: Hematocrit 31.2 % (37.0-47.0); Hemoglobin 9.9 g/dl (12.0-16.0); Mean Corpuscular HGB Conc 31.7 g/dl (31.0-35.0); Mean Corpuscular Hemoglobin 25.4 pg (27.0-33.0); Platelet Count 368 X10*3/uL (160-400); Red Cell Distribution Width 14.1 % (11.0-16.0)
[2024-11-06 06:57] LABS: Anion Gap 12 (12-20); Blood Urea Nitrogen 20 mg/dL (9-16); Calcium 8.8 mg/dL (8.4-10.2); Carbon Dioxide 29 mmol/L (22-29); Chloride 97 mmol/L (96-108); Creatinine Clr Calc Pharmacy 65.7; Estimated Glomerular Filt Rate > 60; Glucose Random 234 mg/dL (60-115); Sodium 134 mmol/L (135-145)
[2024-11-06] MEDS: 0.9 % Sodium Chloride Flush 3 ML SYRINGE IVFLUSH ×3 (09:25→21:59)
[2024-11-06] MEDS: methylPREDNISolone Sod Succ 40 MG/ML VIAL IVPUSH ×2 (09:26→21:59)
[2024-11-06] MEDS: Spironolactone 25 MG TABLET PO (09:26)
[2024-11-06] MEDS: hydroCHLOROthiazide 25 MG TABLET PO (09:27)
[2024-11-06] MEDS: Metoprolol Succinate ER 100 MG TAB.ER.24H PO (09:27)
[2024-11-06] MEDS: PARoxetine HCL 40 MG TABLET PO (09:27)
--- NOTE | 2024-11-06 12:28 | PC.RT ---
Home O2 eval done RT. Pt was unable to complete a full 6 minute walk, pt felt dizzy. Pt SATs on RA were >90%, however dipped to low 80's on ambulation on RA. Pt was placed on 2L and bought back to bed. Pt states she does not feel safe going home at this time. and RN notified.
[2024-11-06] MEDS: Albuterol/Iprat 2.5/0.5MG 3 ML AMPUL.NEB INHALE ×2 (12:33→20:50)
[2024-11-06] MEDS: Fluticasone/Umeclidinium/Vilanterol 200/62.5/25 BLST.W.DEV 1 PUFF INHALE (12:33)
--- NOTE | 2024-11-06 14:07 | P.PNIM_ITS ---
Subjective Subjective Date of Service: 11/06/24 Interval History: Patient seen and examined this morning In the morning she requested discharge home Her oxygen saturations were borderline at 89% on room air and hence a home O2 evaluation was attempted. However patient became exceedingly short of breath and was unable to complete this At this point, she does not feel ready for discharge Physical Exam 2 Vital Signs: Vital Signs: Last Vital Signs Temp 98.2 F 11/06/24 10:56 Pulse 82 11/06/24 12:33 Resp 16 11/06/24 12:33 BP 156/74 H 11/06/24 10:56 Pulse Ox 90 L 11/06/24 10:56 O2 Del Method Room Air 11/06/24 10:56 O2 Flow Rate 2 11/06/24 04:57 Oxygen Flow Rate 2 11/04/24 19:23 BMI result Body Mass Index 38.6 Const: Other: Awake alert Lungs diminished sounds with scattered wheezing S1-S2 Abdomen soft nontender Neuro nonfocal Objective Data Active Medications Acetaminophen (Acetaminophen 325 Mg Tablet) 650 mg PO Q6H PRN PRN Reason: Pain, Mild 1-3,fever,headache Last Admin: 11/06/24 04:44 Dose: 650 mg Documented By: ALDO Albuterol/Ipratropium (Albuterol/Iprat 2.5/0.5mg 3 Ml Ampul.Neb) 3 ml INHALE Q4H PRN PRN Reason: Shortness of Breath/Wheezing Albuterol/Ipratropium (Albuterol/Iprat 2.5/0.5mg 3 Ml Ampul.Neb) 3 ml INHALE RQ4H WHILE AWAKE [facility] Last Admin: 11/06/24 12:33 Dose: 3 ml Documented By: LESLEY Benzonatate (Benzonatate 100 Mg Capsule) 100 mg PO TID PRN PRN Reason: Cough Calcium Carbonate (Calcium Carbonate 750 Mg Tab.Chew) 750 mg PO Q4H PRN PRN Reason: Heartburn Diphenhydramine HCl (Diphenhydramine Hcl 25 Mg Capsule) 25 mg PO BEDTIME [facility] Last Admin: 11/05/24 20:58 Dose: 25 mg Documented By: BINU Enoxaparin Sodium (Enoxaparin Sodium 40 Mg/0.4 Ml Syringe) 40 mg SUBCUT Q24H [facility] Last Admin: 11/05/24 21:38 Dose: 40 mg Documented By: BINU Fluticasone/Umeclidinium/Vilanterol (Fluticasone/Umeclidinium/Vilanterol 200/62.5/25 Blst.W.Dev) 1 puff INHALE RDAILY [facility] Last Admin: 11/06/24 12:33 Dose: 1 puff Documented By: LESLEY Hydrochlorothiazide (Hydrochlorothiazide 25 Mg Tablet) 25 mg PO DAILY [facility]; Protocol Last Admin: 11/06/24 09:27 Dose: 25 mg Documented By: MARIA ANTONIA Lorazepam (Lorazepam 0.5 Mg Tablet) 0.5 mg PO Q8H PRN PRN Reason: anxiety Magnesium Hydroxide (Milk Of Magnesia 30 Ml Oral.Susp) 30 ml PO DAILY PRN PRN Reason: Constipation Melatonin (Melatonin 3 Mg Tablet) 6 mg PO BEDTIME PRN PRN Reason: Insomnia Methylprednisolone Sodium Succinate (Methylprednisolone Sod Succ 40 Mg/Ml Vial) 40 mg IVPUSH BID [facility] Last Admin: 11/06/24 09:26 Dose: 40 mg Documented By: MARIA ANTONIA Metoprolol Succinate (Metoprolol Succinate Er 100 Mg Tab.Er.24h) 100 mg PO DAILY [facility]; Protocol Last Admin: 11/06/24 09:27 Dose: 100 mg Documented By: MARIA ANTONIA Montelukast Sodium (Montelukast Sodium 10 Mg Tablet) 10 mg PO BEDTIME [facility] Last Admin: 11/05/24 21:38 Dose: 10 mg Documented By: BINU Ondansetron HCl (Ondansetron Hcl 4 Mg/2 Ml Vial) 4 mg IVPUSH Q8H PRN PRN Reason: Nausea and Vomiting Oseltamivir Phosphate (Oseltamivir Phosphate 75 Mg Capsule) 75 mg PO Q12H [facility] Stop: 11/09/24 18:46 Last Admin: 11/06/24 06:09 Dose: 75 mg Documented By: ALOD Paroxetine HCl (Paroxetine Hcl 40 Mg Tablet) 40 mg PO DAILY [facility] Last Admin: 11/06/24 09:27 Dose: 40 mg Documented By: MARIA ANTONIA Sodium Chloride (0.9 % Sodium Chloride Flush 3 Ml Syringe) 3 ml IVFLUSH QSHIFT [facility] Last Admin: 02/21/25 09:25 Dose: 3 ml Documented By: MARIA ANTONIA Spironolactone (Spironolactone 25 Mg Tablet) 25 mg PO DAILY [facility]; Protocol Last Admin: 11/06/24 09:26 Dose: 25 mg Documented By: MARIA ANTONIA Labs 11/06/24 06:21 11/06/24 06:21 Labs: Laboratory Results - last 24 hr 11/06/24 06:21 MCV 80.0 MCH 25.4 L MCHC 31.7 RDW 14.1 Plt Count 368 MPV 9.0 L Absolute Nucleated RBC 0.000 Nucleated RBC % (auto) 0.0 Anion Gap 12 Estim Creat Clear Calc 65.7 Estimated GFR > 60 Random Glucose 234 H Calcium 8.8 Assessment and Plan (1) Asthma with exacerbation: Status: Acute Plan 74F PMH moderate persistent asthma/COPD, hypertension, history of breast cancer, hyperlipidemia center for shortness of breaths Acute hypoxic respiratory failure secondary to flu complicated by COPD/moderate persistent asthma with acute decompensation Plan was for DC home today, however patient became exceedingly short of breath on ambulation and hence does not feel ready for discharge We will continue with IV steroids, Tamiflu, updrafts Wean O2 as tolerated Hypertension Continue hydrochlorothiazide, Toprol, Aldactone Obesity Weight loss recommended DVT prophylaxis with Lovenox Full Code reason for continued hospitalization: Hypoxia and shortness of breath Quality Stroke Does the patient have a stroke diagnosis?: No VTE Prior VTE?: No VTE Risk Level:: Medical - moderate - high VTE Device Contraindication: Treatment Not Indicated VTE Drug Contraindication: N/A - Med Ordered
--- NOTE | 2024-11-06 19:31 | PC.NURSE ---
Assumed care at 1400, patient alert and oriented, on droplets precautions due to positive influenza A test. On 2L NC sats above 90%, c/o dispnea on exertion. Patient independent in the room, compliant with medication, takes pills whole with water, ate 100% dinner.
[2024-11-06] MEDS: LORazepam 0.5 MG TABLET PO (20:53)
[2024-11-06] MEDS: diphenhydrAMINE HCL 25 MG CAPSULE PO (21:59)
[2024-11-06] MEDS: Montelukast Sodium 10 MG TABLET PO (21:59)
[2024-11-06] MEDS: Enoxaparin Sodium 40 MG/0.4 ML SYRINGE SUBCUT (22:00)
[2024-11-07] VITALS (7 sets, daily range): BP systolic 158–171; BP diastolic 78; PULSE 80–97; RESP 16–18; TEMP 36.2–36.9; O2SAT 87–99
[2024-11-07] MEDS: Oseltamivir Phosphate 75 MG CAPSULE PO (06:25)
[2024-11-07] MEDS: Spironolactone 25 MG TABLET PO (08:11)
[2024-11-07] MEDS: Metoprolol Succinate ER 100 MG TAB.ER.24H PO (08:12)
[2024-11-07] MEDS: hydroCHLOROthiazide 25 MG TABLET PO (08:12)
[2024-11-07] MEDS: PARoxetine HCL 40 MG TABLET PO (08:12)
[2024-11-07] MEDS: 0.9 % Sodium Chloride Flush 3 ML SYRINGE IVFLUSH (08:13)
[2024-11-07] MEDS: methylPREDNISolone Sod Succ 40 MG/ML VIAL IVPUSH (08:13)
[2024-11-07] MEDS: Albuterol/Iprat 2.5/0.5MG 3 ML AMPUL.NEB INHALE (11:52)
--- NOTE | 2024-11-07 12:36 | P.DS_ITS ---
DS: Providers Provider Date of Service: 11/07/24 Date of admission: 11/04/24 22:17 Date of discharge: 11/07/24 Primary care physician: Fallon Ramey MD Attending physician on discharge: Clifton Hayden Discharging clinician: Clifton Hayden DS: Diagnosis Discharge Diagnosis (1) Asthma with exacerbation: Status: Acute DS: Summary Hospital Course Hospital Course: HPI:74-year-old female with a past medical history significant for combined asthma and COPD, HTN, history breast cancer and HLD, who presented to the ED due to shortness of breath for weeks, worsening, cough wheezing. She reports that she was diagnosed with the flu 1 week ago. She has had a nonproductive cough and was satting at 80% on room air when EMS arrived. She was given Solu-Medrol and DuoNeb with good improvement. Hospital course: 74F PMH moderate persistent asthma/COPD, hypertension, history of breast cancer, hyperlipidemia center for shortness of breaths-Acute hypoxic respiratory failure secondary to flu complicated by COPD/moderate persistent asthma with acute decompensation: no leucocytosis ,cxr negative ,flu A positive: patient started on nebs,steriods and tamiflu,oxygen ,cough medictaion -seems to be improved with above supportive care. patient seems to be improved with above management and home oxygen eval done - patient qulified for home oxygen , respiratory is aware to arrange. plan: prednisone 40 mg po dailyx4 days. tamiflu 75 mg bid x5 more doses. will go with home oxygen( resting 2 liter and ambulating 3 liters). Above management discussed with the patient in detail length she understand and in agreement with the above plan, time spent 40 minutes and 50% time spent on counseling. Time Attestation Total time managing care of this patient today: 40 mintues. Discharge Coordination Time (in mins): 40 min Quality: Safe Use of Opioids Does Pt have an Active Cancer Diagnosis on the Problem List?: No Quality: Stroke Does the patient have a stroke diagnosis?: No Physical Exam Vital Signs: Vital Signs: Last Vital Signs Temp 98.4 F 11/07/24 07:02 Pulse 85 11/07/24 11:53 Resp 18 11/07/24 11:53 BP 167/78 H 11/07/24 07:02 Pulse Ox 95 11/07/24 08:51 O2 Del Method Nasal Cannula 11/07/24 08:51 O2 Flow Rate 2 11/07/24 08:51 Oxygen Flow Rate 2 11/04/24 19:23 BMI result Body Mass Index 35.5 Awake alert Lungs : air entry fair , no rales or wheezing cvs:S1-S2 ,rrr. Abdomen: soft nontender , bs present. Neuro nonfocal Discharge Plan Discharge Anticipated Discharge Date/Time: 11/07/24 12:22 Patient Disposition: Home, Self-Care Discharge Diagnosis: Acute hypoxic respiratory failure secondary to flu complicated by COPD/moderate persistent asthma with acute decompensation Referrals: Fallon Ramey MD [Primary Care Provider] - 1 Week Discharge Medications: New oseltamivir [Tamiflu] 75 mg Capsule 75 mg PO Q12H Qty: 5 0RF prednisone 20 mg Tablet 40 mg PO DAILY Qty: 4 0RF benzonatate 100 mg Capsule 100 mg PO TID PRN (Reason: Cough) Qty: 20 0RF Continued metoprolol succinate 100 mg tablet extended release 24 hr 100 mg PO DAILY spironolactone 25 mg tablet 25 mg PO DAILY simvastatin 40 mg tablet 40 mg PO 1XD montelukast 10 mg tablet 10 mg PO BEDTIME hydrochlorothiazide 25 mg tablet 25 mg PO DAILY paroxetine HCl 40 mg tablet 40 mg PO QAM lorazepam 0.5 mg tablet 0.5 mg PO Q8H PRN (Reason: anxiety) ipratropium-albuterol 0.5 mg-3 mg(2.5 mg base)/3 mL solution for nebulization INHALATION melatonin 3 mg Tablet 3 mg PO BEDTIME acetaminophen 500 mg Tablet 500 mg PO QID PRN (Reason: Pain) diphenhydramine HCl [Benadryl] 25 mg Capsule 25 mg PO BEDTIME naproxen sodium [Aleve] 220 mg Tablet 440 mg PO BID docusate sodium 100 mg Capsule 100 mg PO BID PRN (Reason: Constipation) albuterol sulfate 90 mcg/actuation HFA aerosol inhaler 2 puff INHALATION Q6H PRN (Reason: wheezing) Trelegy Ellipta 200-62.5-25 mcg blister with device 1 ea INHALATION DAILY Discharge Orders: Discharge Order (Routine); Ordered 11/07/24 Ordered By: Clifton Hayden Diet: Advance to usual diet Activity on Discharge: As tolerated Stand Alone Forms: Patient Portal Discharge page Print Language: Kosovan Care Plan Goals: 74F PMH moderate persistent asthma/COPD, hypertension, history of breast cancer, hyperlipidemia center for shortness of breaths-Acute hypoxic respiratory failure secondary to flu complicated by COPD/moderate persistent asthma with acute decompensation: no leucocytosis ,cxr negative ,flu A positive: patient started on nebs,steriods and tamiflu,oxygen ,cough medictaion -seems to be improved with above supportive care. patient seems to be improved with above management and home oxygen eval done - patient qulified for home oxygen , respiratory is aware to arrange. Health Concerns: as above. Plan of Treatment: prednisone 40 mg po dailyx4 days. tamiflu 75 mg bid x5 more doses. will go with home oxygen( resting 2 liter and ambulating 3 liters). Assessment: as above.
== END 2024-11-07 14:48 | disposition home or self-care (01) | DRG 193 ==
LOC: HO.ED 22:50 → HO.EDOVER 22:55 → HO.S3 11-06 19:32
PROVIDERS: Internal Medicine; Admitting Provider Student in an Organized Health Care Education/Training Program; Emergency Provider Emergency Medicine; PCP Internal Medicine; Visit Provider Internal Medicine
DX: J10.1 Influenza due to other identified influenza virus with other respiratory manifestations (principal); J96.01 Acute respiratory failure with hypoxia; J44.1 Chronic obstructive pulmonary disease with (acute) exacerbation; J45.41 Moderate persistent asthma with (acute) exacerbation; I10 Essential (primary) hypertension; E66.9 Obesity, unspecified; Z68.35 Body mass index [BMI] 35.0-35.9, adult; Z85.3 Personal history of malignant neoplasm of breast; Z71.3 Dietary counseling and surveillance; Z79.899 Other long term (current) drug therapy
CPT/HCPCS: 0241U; 36415; 71045; 80048; 80076; 82803; 83880; 84484; 85025; 85027; 93005; 94640; 99285; J1650; J2919; J3475

== ENCOUNTER → 2024-11-04 19:25 | Outpatient (BNV) | payer MEDICARE, SELFPAY | PROVIDERS: Admitting Provider Student in an Organized Health Care Education/Training Program; Emergency Provider Emergency Medicine; Visit Provider Internal Medicine | DX: R06.02 Shortness of breath (principal) | CPT/HCPCS: 93010 ==

== ENCOUNTER → 2024-11-04 19:25 | Outpatient (BNV) | payer SELFPAY | PROVIDERS: Emergency Provider Emergency Medicine; Visit Provider Radiology Diagnostic Radiology | DX: R06.02 Shortness of breath (principal) | CPT/HCPCS: 71045 ==

== ENCOUNTER → 2024-11-04 22:17 | Outpatient (BNV) | payer MEDICARE, SELFPAY | PROVIDERS: Admitting Provider Student in an Organized Health Care Education/Training Program; Emergency Provider Emergency Medicine; Visit Provider Physician Assistant | DX: J96.01 Acute respiratory failure with hypoxia (principal); J44.1 Chronic obstructive pulmonary disease with (acute) exacerbation; J11.1 Influenza due to unidentified influenza virus with other respiratory manifestations; E66.9 Obesity, unspecified; J45.901 Unspecified asthma with (acute) exacerbation | CPT/HCPCS: 99223; 99232; 99233; 99239 ==